=== PATIENT | female | born 1945 | race Two or more races ===

== ENCOUNTER 2024-06-11 19:08 | Inpatient (IN) | payer OTHER, MEDICAID ==
[~2024-06-11] VITALS: Ht 160 cm; Wt 93.9 kg
[~2024-06-11 19:08] MED LIST: ALBU108A5 INH; ALBUAER3 IN; HYDR-4491 PO; LEVO500T31 PO; OMEP1CAP70 PO; OMEP20TA PO; PRED20TA2 PO
[2024-06-11] MEDS: METOPROLOL TARTRATE 1MG/1ML-5ML VIAL IV ONE (19:44)
[2024-06-11] MEDS: DIGOXIN (250MCG/ML) 2 ML AMPULE IV ONE (19:44)
[2024-06-11 19:47] LABS: Urine Bacteria None Seen /hpf (None Seen)
[2024-06-11 19:48] VITALS: PULSE 166; RESP 16; O2SAT 94
--- NOTE | 2024-06-11 19:48 | ED.PDOC ---
HPI Comments 78-year-old female came to ER via EMS for palpitations. Patient does have history of hypertension, dyslipidemia, asthma, congestive heart failure, and AFib. Patient currently on Eliquis for her AFib. Patient has good compliance to her medications. Patient states for the past week, she has been feeling weak with productive cough, and episodes of palpitations. Denies any acute chest pains. Patient was seen at urgent care, EKG showed AFib in RVR, and patient was transferred to this institution for further evaluation and management. Chief Complaint: Palpitations Time Seen by MD: 19:48 Reviewed Notes: Nurses Notes Allergies: Coded Allergies: No Known Drug Allergy (Verified Allergy, Unknown, 06/15/17) Home Meds Active Scripts Albuterol Sulfate (VENTOLIN MDI) 90 Mcg Ih, 1 PUFF IN Q6HPRN PRN, #1 INHALER Prov:DA BERNAL MD 06/15/17 Levofloxacin (Levaquin) 500 Mg Tab, 500 MG PO DAILY, #7 Prov:DA BERNAL MD 06/15/17 Reported Medications Hydroxychloroquine Sulfate (PLAQUENIL) 200 Mg Tab, 200 MG PO DAILY, TAB 06/15/17 Omeprazole (Gnp Omeprazole) 20 Mg Tab, 20 MG PO DAILY, TAB 06/15/17 Information Source: Patient Mode of Arrival: EMS Severity: Moderate Timing: Days Duration: Intermittent Prehospital treatment: 12 Lead EKG Location: Substernal Radiation: No Radiation Quality: Other (Palpitations) Onset: With Light Exertion Cardiac Risk Factors: Hyperlipidemia, HTN, Other (Congestive heart failure, AFib) Associated Signs and Symptoms: Palpitations Past Medical History PAST MEDICAL HISTORY: Arthritis, Asthma, CHF, COPD, High Lipids, HTN Surgical History: Denies all surgeries 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: 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 HANDLING EQUIPMENT OPERATOR Hx Family History Family History: No family hx of Heart lesvia, No family hx of HTN Social History Smoker: Non-Smoker Alcohol: Denies ETOH Use Drugs: Denies Drug Use Lives In: Home Constitutional: reports: fatigue, weakness; denies: chills, diaphoresis, fever, malaise, sweats, others EENTM: denies: blurred vision, double vision, ear bleeding, ear discharge, ear drainage, ear pain, ear ringing, eye pain, eye redness, hearing loss, mouth pain, mouth swelling, nasal discharge, nose bleeding, nose congestion, nose pain, photophobia, tearing, throat pain, throat swelling, voice changes, others Respiratory: reports: cough; denies: hemoptysis, orthopnea, SOB at rest, shortness of breath, SOB with excertion, stridor, wheezing, others Cardiovascular: reports: edema, palpitations; denies: chest pain, dizzy spells, diaphoresis, Dyspnea on exertion, irregular heart beat, left arm pain, lightheadedness, PND, syncope, others Gastrointestinal: denies: abdomen distended, abdominal pain, blood streaked bowels, constipated, diarrhea, dysphagia, difficulty swallowing, hematemesis, melena, nausea, poor appetite, poor fluid intake, rectal bleeding, rectal pain, vomiting, others Genitourinary: denies: abnormal vagina bleeding, burning, dyspareunia, dysuria, flank pain, frequency, hematuria, incontinence, pain, , vagina discharge, urgency, others Neurological: denies: dizziness, fainting, headache, left sided numbness, left sided weakness, numbness, paresthesia, pre-existing deficit, right sided numbness, right sided weakness, seizure, speech problems, tingling, tremors, weakness, others Musculoskeletal: denies: back pain, gout, joint pain, joint swelling, muscle pain, muscle stiffness, neck pain, others Integumetry: denies: bruises, change in color, change in hair/nails, dryness, laceration, lesions, lumps, rash, wounds, others Allergic/Immunocompromised: denies: Difficulty Healing, Frequent Infections, H bonny, Itching, others Hematologic/Lymphatic: denies: anemia, blood clots, easy bleeding, easy bruising, swollen glands, others Endocrine: denies: excessive hunger, excessive sweating, excessive thirst, excessive urination, flushing, intolerance to cold, intolerance to heat, unexplained weight gain, unexplained weight loss, others Psychiatric: denies: anxiety, bipolar disorder, depression, hopeless, panic disorder, schizophrenia, sleepless, suicidal, others Physical Exam General Appearance: No Apparent Distress, Normal HEENT: Normal ENT Inspection, Pharynx Normal, TMs Normal Neck: Full Range of Motion, Non-Tender, Normal, Normal Inspection Respiratory: Chest Non-Tender, Lungs Clear, No Accessory Muscle Use, No Respiratory Distress, Normal Breath Sounds Cardiovascular: No Edema, No JVD, No Murmur, No Gallop, Normal Peripheral Pulses, Regular Rate/Rhythm Breast Exam: Deferred Gastrointestinal: No Organomegaly, Non Tender, No Pulsatile Mass, Normal Bowel Sounds, Soft Genitalia: Deferred Pelvic: Deferred Rectal: Deferred Extremities: No calf tenderness, Normal capillary refill, Normal inspection, Normal range of motion, Non-tender, No pedal edema Musculoskeletal : Apperance: Normal Neurologic: Alert, robot programmer II-XII nml as Tested, No Motor Deficits, Normal Affect, Normal Mood, No Sensory Deficits Cerebellar Function: Normal Reflexes: Normal Skin: Dry, Normal Color, Warm Lymphatic: No Adenopathy EKG EKG : Pulse Rate (adult): 167 Cardiac Rhythm: Afib Was a procedure done? Was a procedure done?: No CP Differential Dx Differential Diagnosis: A-fib, Angina, Anxiety / Panic Attack, Electrolyte Disorder Differential Diagnosis: Angina, Chest Wall Pain, Costochondritis, Esophageal reflux/spasm, Gastritis, Myocardial Infarction X-Ray, Labs, Meds, VS Vital Signs Date Time Temp Pulse Resp B/P (MAP) Pulse Ox O2 Delivery O2 Flow Rate FiO2 06/11/24 20:37 119 142/82 06/11/24 20:00 110 06/11/24 19:48 166 16 94 Room Air* 0 21 06/11/24 19:48 167 06/11/24 19:46 98.7 166 19 122/84 (97) 93 98.7 06/11/24 19:44 167 06/11/24 19:44 167 122/84 06/11/24 19:23 167 06/11/24 19:17 98.4 169 18 147/63 (91) 97 98.4 Lab Test 06/11/24 20:32 06/11/24 19:47 Range/Units Troponin I High Sensitivity 79 *H 78 *H </=34 ng/L White Blood Count 6.1 4.4-10.8 10^3/uL Red Blood Count 4.96 4.0-5.20 10^6/uL Hemoglobin 15.2 12.2-16.2 g/dL Hematocrit 46.1 H 36.0-46.0 % Mean Corpuscular Volume 92.9 80.0-100.0 fL Mean Corpuscular Hemoglobin 30.7 28.0-32.0 pg Mean Corpuscular Hemoglobin Concent 33.0 32.0-36.0 g/dL Red Cell Distribution Width 14.5 H 11.8-14.3 % Platelet Count 218 140-450 10^3/uL Mean Platelet Volume 8.4 6.9-10.8 fL Neutrophils (%) (Auto) 87.5 H 37.0-80.0 % Lymphocytes (%) (Auto) 9.7 L 10.0-50.0 % Monocytes (%) (Auto) 2.5 0.0-12.0 % Eosinophils (%) (Auto) 0.2 0.0-7.0 % Basophils (%) (Auto) 0.1 0.0-2.0 % Neutrophils # (Auto) 5.3 1.6-8.6 10 ^3/uL Lymphocytes # (Auto) 0.6 0.4-5.4 10 ^3/uL Monocytes # (Auto) 0.2 0-1.3 10 ^3/uL Eosinophils # (Auto) 0 0-0.8 10 ^3/uL Basophils # (Auto) 0 0-0.2 10 ^3/uL Nucleated Red Blood Cells 0.1 % Prothrombin Time 10.5 9.3-11.8 sec Prothrombin Time INR 0.99 0.9-1.15 Activated Partial Thromboplast Time 24.9 24.5-34.5 SEC Urine Color Colorless Yellow Urine Clarity Clear Clear Urine pH 5.5 5.0-9.0 Urine Specific [place] 1.005 1.001-1.035 Urine Protein Negative Negative Urine Ketones Negative Negative Urine Blood Negative Negative /uL Urine Nitrite Negative Negative Urine Bilirubin Negative Negative Urine Urobilinogen Normal Negative mg/dL Urine Leukocyte Esterase Negative Negative /uL Urine RBC <1 0 - 4 /hpf Urine Microscopic WBC < 1 0-5 /HPF Urine Squamous Epithelial Cells None seen <5 /hpf Urine Bacteria None seen None Seen /hpf Urine Glucose Normal Normal mg/dL Sodium Level 142 136-145 mmol/L Potassium Level 3.8 3.5-5.1 mmol/L Chloride Level 103 98-107 mmol/L Carbon Dioxide Level 28 20-31 mmol/L Anion Gap 11 5-15 Blood Urea Nitrogen 36 H 9-23 mg/dL Creatinine 0.77 0.550-1.02 mg/dL Glomerular Filtration Rate Calc 79 >90 mL/min BUN/Creatinine Ratio 46.8 H 10.0-20.0 Serum Glucose 168 H 74-106 mg/dL Calcium Level 9.4 8.7-10.4 mg/dL Total Bilirubin 0.7 0.2-1.0 mg/dL Aspartate Amino Transferase (AST) 23 13-40 U/L Alanine Aminotransferase (ALT) 25 7-40 U/L Alkaline Phosphatase 104 46-116 U/L B-Type Natriuretic Peptide 91.99 0-100 pg/mL Total Protein 6.8 5.7-8.2 g/dL Albumin 4.2 3.2-4.8 g/dL Current Medications Medications (Trade) Dose Ordered Sig/Emmanuelle Route Start Time Stop Time Status Last Admin Metoprolol Tartrate (Lopressor) 5 mg Q15M ONCE IV 06/11/24 19:30 06/11/24 19:31 DC 06/11/24 19:44 Digoxin (Lanoxin Injection) 250 mcg ONCE ONCE IV 06/11/24 19:30 06/11/24 19:31 DC 06/11/24 19:44 Aspirin (Ecotrin Enteric Coated Tablet) 81 mg ONCE ONCE PO 06/11/24 20:45 06/11/24 20:46 DC 06/11/24 20:43 CHEST RADIOGRAPH Indication: SOB Technique: Single frontal view of the chest was obtained COMPARISON: Chest x-ray 02/28/2022 FINDINGS: Lines and Tubes: None Lungs: Clear Pleura: No effusion. No pneumothorax. Cardiomediastinal contours: Unremarkable IMPRESSION: No acute abnormality demonstrated. Time of 1ST Reevaluation: 19:43 Reevaluation 1ST: Unchanged Time of 2ND Reevaluation: 21:31 Reevaluation 2ND: Unchanged Patient Education/Counseling: Diagnosis, Treatment Family Education/Counseling: No Family Present Departure 1 Departure Time of Disposition: 21:00 Impression: Primary Impression: Poorly-controlled hypertension Additional Impressions: Atrial fibrillation with rapid ventricular response Intermediate coronary syndrome Disposition: ADMITTED INPATIENT Condition: Guarded Discharged With: Self Comments Atrial Fibrillation with RVR and Chest Tightness Chief Complaint: Chest tightness and palpitations History of Present Illness: 78-year-old female with known history of atrial fibrillation presents to the emergency department with a 4-hour history of chest tightness and palpitations. Patient was initially evaluated at urgent care where she was found to be in atrial fibrillation with rapid ventricular response, prompting emergency department referral. On presentation, patient demonstrated significant heart rate variability ranging from 160-170 beats per minute. Patient is reportedly taking Eliquis for anticoagulation. Review of Systems: Cardiovascular: Positive for chest tightness, palpitations All other systems reviewed and negative Medications: Eliquis (Apixaban) Other home medications not specified in behavioral health assistant Past Medical History: 1. Atrial fibrillation 2. Hypertension Vital Signs: Heart Rate: 160-170 bpm initially, improved to approximately 115 bpm after treatment Physical Exam: Limited physical exam details available in behavioral health assistant Lab Results: Troponin: Initially 78, repeat 79 Other labs reported as unremarkable Imaging and Other Relevant Results: No imaging results documented in behavioral health assistant Medical Decision Making: Summary Statement: 78-year-old female with history of atrial fibrillation presenting with symptomatic rapid ventricular response requiring acute rate control intervention and admission. Problem List: 1. Atrial fibrillation with RVR 2. Elevated troponin 3. Chest tightness 4. Hypertension Differential Diagnosis: 1. Acute coronary syndrome 2. Medication non-compliance 3. Thyroid dysfunction 4. Electrolyte imbalance 5. Infection ED Course: Patient received three doses of IV metoprolol 5mg and digoxin loading for rate control. Aspirin administered. Rate improved from 160-170 to approximately 115. Case discussed with PHILLIP Liu who accepted admission for further management. Assessment and Plan: 1. Atrial Fibrillation with RVR: - Successfully treated with IV metoprolol and digoxin - Admit for continued rate control and medication adjustment - Continue current anticoagulation with Eliquis 2. Intermediate Coronary Syndrome: - Mildly elevated troponin requiring further evaluation - Initiated on aspirin - Require serial troponin monitoring 3. Hypertension: - Requires optimization of medical management Disposition: Admission to medical floor under PHILLIP Liu's service Billing Information: ICD-10: I48.91 - Unspecified atrial fibrillation ICD-10: R00.0 - Tachycardia, unspecified ICD-10: I10 - Essential (primary) hypertension ICD-10: R07.89 - Other chest pain Critical Care Note Critical Care Time?: Yes (35 min-critical care time only) Critical care comment: AFib in RVRTotal critical care time: Approximately 36 minutes Due to a high probability of clinically significant, life threatening deterioration, the patient required my highest level of preparedness to intervene emergently and I personally spent this critical care time directly and personally managing the patient. This critical care time included obtaining a history; examining the patient; pulse oximetry; ordering and review of studies; arranging urgent treatment with development of a management plan; evaluation of patient's response to treatment; frequent reassessment; and, discussions with other providers. This critical care time was performed to assess and manage the high probability of imminent, life-threatening deterioration that could result in multi-organ failure. It was exclusive of separately billable procedures and treating other patients. Stability Stability form required: No Heart Score Heart Score: Heart Score Response (Comments) Value History Moderate Suspicious 1 EKG Repolarization Disturb 1 Age >65 2 Risk Factors >3 or Hx ASHD 2 Troponin 1-2 x's Normal limit 1 Total 7 I personally scribed for BARBIE SESAY MD ([email or web address]) on 06/11/24 at 19:48. Electronically submitted by Sudhir Lebron (Therative). I personally scribed for BARBIE SESAY MD ([email or web address]) on 06/11/24 at 21:08. Electronically submitted by Sudhir Lebron ([email or web address]). BARBIE SESAY MD Jun 11, 2024 19:48
[2024-06-11 20:04] LABS: Basophils # (auto) 0 10 ^3/uL (0-0.2); Basophils % (auto) 0.1 % (0.0-2.0); Eosinophils # (auto) 0 10 ^3/uL (0-0.8); Eosinophils % (auto) 0.2 % (0.0-7.0); Hematocrit 46.1 % (36.0-46.0); Hemoglobin 15.2 g/dL (12.2-16.2); Lymphocytes # (auto) 0.6 10 ^3/uL (0.4-5.4); Lymphocytes % (auto) 9.7 % (10.0-50.0); Mean Corpuscular Hemoglobin 30.7 pg (28.0-32.0); Mean Corpuscular Volume 92.9 fL (80.0-100.0); Monocytes # (auto) 0.2 10 ^3/uL (0-1.3); Monocytes % (auto) 2.5 % (0.0-12.0); Neutrophils # (auto) 5.3 10 ^3/uL (1.6-8.6); Neutrophils % (auto) 87.5 % (37.0-80.0); Nucleated Red Blood Cells % 0.1 %; Platelet Count (auto) 218 10^3/uL (140-450); Red Blood Cells 4.96 10^6/uL (4.0-5.20); Red Cell Distribution Width 14.5 % (11.8-14.3); White Blood Cell 6.1 10^3/uL (4.4-10.8)
[2024-06-11 20:07] LABS: Urine Blood Negative /uL (Negative); Urine Clarity Clear (Clear); Urine Color Colorless (Yellow); Urine Protein, UAD Negative (Negative); Urine Specific Gravity 1.005 (1.001-1.035); Urine Squamous Epithelial Cell None Seen /hpf (<5); Urine Urobilinogen Normal (Negative); Urine WBC < 1 /HPF (0-5); Urine pH 5.5 (5.0-9.0)
[2024-06-11 20:19] LABS: Alanine Aminotransferase 25 U/L (7-40); Albumin 4.2 g/dL (3.2-4.8); Alkaline Phosphatase 104 U/L (46-116); Anion Gap 11 (5-15); Aspartate Aminotransferase 23 U/L (13-40); BUN/Creatinine Ratio 46.8 (10.0-20.0); Bilirubin, Total 0.7 mg/dL (0.2-1.0); Calcium 9.4 mg/dL (8.7-10.4); Carbon Dioxide 28 mmol/L (20-31); Chloride 103 mmol/L (98-107); INR 0.99 (0.9-1.15); Partial Thromboplastin Time 24.9 SEC (24.5-34.5); Potassium 3.8 mmol/L (3.5-5.1); Prothrombin Time 10.5 sec (9.3-11.8); Sodium 142 mmol/L (136-145); Total Protein 6.8 g/dL (5.7-8.2)
[2024-06-11 20:21] LABS: Blood Urea Nitrogen 36 mg/dL (9-23); Glucose 168 mg/dL (74-106)
--- NOTE | 2024-06-11 20:32 | DVH ---
CHEST RADIOGRAPH Indication: SOB Technique: Single frontal view of the chest was obtained COMPARISON: Chest x-ray 02/28/2022 FINDINGS: Lines and Tubes: None Lungs: Clear Pleura: No effusion. No pneumothorax. Cardiomediastinal contours: Unremarkable IMPRESSION: No acute abnormality demonstrated.
[2024-06-11] MEDS: ASPirin-EC 81 mg tab PO ONE (20:43)
[2024-06-11] MEDS ORDERED: DOCUSATE SOD 100 MG CAP PO PRN (22:15)
[2024-06-11] MEDS ORDERED: NITROGLYCERIN 0.4 MG SL TAB SL PRN (22:15)
[2024-06-11] MEDS ORDERED: HYDROcodone-ACET 5/325MG TAB PO PRN (22:15)
[2024-06-11] MEDS ORDERED: ONDANSETRON HCL 4 MG/2 ML VIAL IV PRN (22:15)
[2024-06-11] MEDS ORDERED: MORPHINE SULFATE INJ 2 MG/ml SYRG IV PRN ×2 (22:15)
[2024-06-11] MEDS ORDERED: METOPROLOL TARTRATE 1MG/1ML-5ML VIAL IV PRN (22:15)
[2024-06-11] MEDS ORDERED: ACETAMINOPHEN 325 MG TAB PO PRN (22:15)
[2024-06-12] VITALS (12 sets, daily range): BP systolic 127–179; BP diastolic 54–80; PULSE 60–105; RESP 16–20; TEMP 97.4–98.3; O2SAT 98–100
--- NOTE | 2024-06-12 02:10 | DVHHP2 ---
PABLITO ALMARAZ BUSINESS ACCOUNT SPECIALIST 06/12/24 0210: History of Present Illness Reason for Visit: Generalized weakness/palpitations History of Present Illness 78-year-old female with past medical history of COPD, AFib, hypertension, CHF? Presents with complaints of chest palpitations and generalized weakness x3 days. Patient went to [facility] urgent care and was deferred to the emergency department for AFib with RVR. Patient endorses exertional shortness of breath after walking short distances. States she has had increased swelling of bilateral lower extremities. Patient states she is on Eliquis for AFib and her patrol man is Dr. Hernandez. At this time patient denies fevers, chills, chest pain, nausea, vomiting, abdominal pain. Cardiovascular: AFIB, HTN Pulmonary: COPD Smoke: No ALCOHOL: none Drugs: None Lives: with Family Review of Systems Constitutional: Yes: Weakness; No: Fever, Chills, Sweats, Malaise, Other Eyes: No: Pain, Vision change, Conjunctivae inflammation, Eyelid inflammation, Other, Redness ENT: No: Ear pain, Ear discharge, Nose pain, Nose discharge, Nose congestion, Mouth pain, Mouth swelling, Throat pain, Throat swelling, Other Respiratory: SOB with excertion; No: Cough, Dry, Shortness of breath, Wheezing, Hemoptysis, Pleuritic Pain, Sputum, Wheezing, Other Cardiovascular: Palpitations, Edema; No: Chest Pain, Orthopnea, Paroxysmal Noc. Dyspnea, Lt Headedness, Other Gastrointestinal: No: Nausea, Vomiting, Abdominal Pain, Diarrhea, Constipation, Melena, Hematochezia, Other Genitourinary: No Dysuria, No Frequency, No Incontinence, No Hematuria, No Retention, No Other Musculoskeletal: No: other, neck pain, shoulder pain, arm pain, back pain, hand pain, leg pain, foot pain Skin: No: Rash, Lesions, Jaundice, Bruising, Other Neurological: No: Weakness, Numbness, Incoordination, Change in speech, Confusion, Seizures, Other Allergies: Coded Allergies: Pineapple (Verified Allergy, Severe, 06/12/24) Uncoded Allergies: Peanutbutter (Allergy, Severe, 06/12/24) Medications Current Medications Medications Dose Ordered Sig/Emmanuelle Route Start Time Stop Time Status Last Admin Dose Admin Docusate Sodium 100 mg BIDPRN PRN PO 06/11/24 22:15 Acetaminophen 650 mg Q6HP PRN PO 06/11/24 22:15 Acetaminophen/ Hydrocodone Bitart 1 tab Q4HP PRN PO 06/11/24 22:15 Ondansetron HCl 4 mg Q4HP PRN IV 06/11/24 22:15 Morphine Sulfate 2 mg Q4HPRN PRN IV 06/11/24 22:15 Nitroglycerin 0.4 mg Q5MINP PRN SL 06/11/24 22:15 Morphine Sulfate 2 mg Q30M PRN IV 06/11/24 22:15 Atenolol 25 mg BID PO 06/12/24 10:00 Apixaban 5 mg BID PO 06/12/24 10:00 Metoprolol Tartrate 2.5 mg Q4HP PRN IV 06/11/24 22:15 Pantoprazole Sodium 40 mg DAILY@BREAKFAST IV 06/12/24 08:00 Exam Vital Signs Vital Signs Date Time Temp Pulse Resp B/P (MAP) Pulse Ox O2 Delivery O2 Flow Rate FiO2 06/12/24 01:00 97.5 99 18 157/80 (105) 98 97.5 06/12/24 00:58 Nasal Cannula* 2 28 General Appearance: Alert, Oriented X3, Cooperative, mild distress HEENT: Atraumatic, PERRLA, EOMI Respiratory: Clear to auscultation, Normal air movement Cardiovascular: Normal S1, Normal S2, Other (AFib low 100s) Abdominal: Normal bowel sounds, Soft, No tenderness Extremities: No clubbing, No cyanosis, Normal pulses, Other (BLE edema) Skin: No rashes, No breakdown Neuro: Normal speech, Strength at 5/5 X4 ext Psych/Mental Status: Mental status NL, Mood NL Labs/Xrays Labs Test 06/11/24 22:39 06/11/24 20:32 06/11/24 19:47 Range/Units Troponin I High Sensitivity 80 *H </=34 ng/L Magnesium Level 2.0 1.6-2.6 mg/dL Thyroid Stimulating Hormone (TSH) 0.48 L 0.55-4.78 uIU/mL White Blood Count 6.1 4.4-10.8 10^3/uL Red Blood Count 4.96 4.0-5.20 10^6/uL Hemoglobin 15.2 12.2-16.2 g/dL Hematocrit 46.1 H 36.0-46.0 % Mean Corpuscular Volume 92.9 80.0-100.0 fL Mean Corpuscular Hemoglobin 30.7 28.0-32.0 pg Mean Corpuscular Hemoglobin Concent 33.0 32.0-36.0 g/dL Red Cell Distribution Width 14.5 H 11.8-14.3 % Platelet Count 218 140-450 10^3/uL Mean Platelet Volume 8.4 6.9-10.8 fL Neutrophils (%) (Auto) 87.5 H 37.0-80.0 % Lymphocytes (%) (Auto) 9.7 L 10.0-50.0 % Monocytes (%) (Auto) 2.5 0.0-12.0 % Eosinophils (%) (Auto) 0.2 0.0-7.0 % Basophils (%) (Auto) 0.1 0.0-2.0 % Neutrophils # (Auto) 5.3 1.6-8.6 10 ^3/uL Lymphocytes # (Auto) 0.6 0.4-5.4 10 ^3/uL Monocytes # (Auto) 0.2 0-1.3 10 ^3/uL Eosinophils # (Auto) 0 0-0.8 10 ^3/uL Basophils # (Auto) 0 0-0.2 10 ^3/uL Nucleated Red Blood Cells 0.1 % Prothrombin Time 10.5 9.3-11.8 sec Prothrombin Time INR 0.99 0.9-1.15 Activated Partial Thromboplast Time 24.9 24.5-34.5 SEC Urine Color Colorless Yellow Urine Clarity Clear Clear Urine pH 5.5 5.0-9.0 Urine Specific [place] 1.005 1.001-1.035 Urine Protein Negative Negative Urine Ketones Negative Negative Urine Blood Negative Negative /uL Urine Nitrite Negative Negative Urine Bilirubin Negative Negative Urine Urobilinogen Normal Negative mg/dL Urine Leukocyte Esterase Negative Negative /uL Urine RBC <1 0 - 4 /hpf Urine Microscopic WBC < 1 0-5 /HPF Urine Squamous Epithelial Cells None seen <5 /hpf Urine Bacteria None seen None Seen /hpf Urine Glucose Normal Normal mg/dL Sodium Level 142 136-145 mmol/L Potassium Level 3.8 3.5-5.1 mmol/L Chloride Level 103 98-107 mmol/L Carbon Dioxide Level 28 20-31 mmol/L Anion Gap 11 5-15 Blood Urea Nitrogen 36 H 9-23 mg/dL Creatinine 0.77 0.550-1.02 mg/dL Glomerular Filtration Rate Calc 79 >90 mL/min BUN/Creatinine Ratio 46.8 H 10.0-20.0 Serum Glucose 168 H 74-106 mg/dL Calcium Level 9.4 8.7-10.4 mg/dL Total Bilirubin 0.7 0.2-1.0 mg/dL Aspartate Amino Transferase (AST) 23 13-40 U/L Alanine Aminotransferase (ALT) 25 7-40 U/L Alkaline Phosphatase 104 46-116 U/L B-Type Natriuretic Peptide 91.99 0-100 pg/mL Total Protein 6.8 5.7-8.2 g/dL Albumin 4.2 3.2-4.8 g/dL Free Thyroxine (T4) Calculated 1.49 0.89-1.76 ng/dL Assessment/Plan Assessment/Plan Atrial fibrillation with RVR Elevated troponin Hypertension Plan Admit telemetry Cardiology consult. Echocardiogram. Continue home medication. IV metoprolol for rate control. ASA, Statin. Physical therapy evaluation GI ppx protonix / DVT ppx SCD on oral anticoagulation Plan discussed with: Patient, Daughter My Orders Orders - PABLITO ALMARAZ NP Procedure Category Date Status Time Admit ADMIT 06/11/24 Transmitted 22:08 Code Status CODE 06/11/24 Transmitted 22:08 Vital Signs BONITA 06/11/24 In Process 22:08 Review Orders With BONITA 06/11/24 In Process Adm. 22:08 Encourage Activity As BONITA 06/11/24 In Process Tolerate 22:08 Consistent DIET 06/12/24 Transmitted Carb(Ccho)Diabetes Breakfast Pulse Oxymetry RT 06/11/24 Transmitted Assessment - 2 22:08 Docusate Sodium PHA 06/11/24 In Process Capsule (Colace 22:15 Acetaminophen Tablet PHA 06/11/24 In Process (Tylenol Tablet) 22:15 Notify Of Changes BONITA 06/11/24 In Process From Base 22:08 Advance Directive BONITA 06/11/24 In Process 22:08 Echo 2d Mode Cardiac US 06/11/24 Logged DOP 22:08 Basic Metabolic Panel LAB 06/12/24 Logged 05:00 Basic Metabolic Panel LAB 06/13/24 Verified 05:00 Basic Metabolic Panel LAB 06/14/24 Verified 05:00 Basic Metabolic Panel LAB 06/15/24 Verified 05:00 Complete Blood Count LAB 06/12/24 Logged 05:00 Complete Blood Count LAB 06/13/24 Verified 05:00 Complete Blood Count LAB 06/14/24 Verified 05:00 Complete Blood Count LAB 06/15/24 Verified 05:00 Complete Blood Count LAB 06/16/24 Verified 05:00 Patient Condition ORDERS 06/11/24 Transmitted 22:08 Allergies BONITA 06/11/24 In Process 22:08 Hydrocodone-Acet PHA 06/11/24 In Process 5/325mg Tab ([place] 22:15 Ondansetron Hcl PHA 06/11/24 In Process (Zofran) 22:15 Morphine Sulfate PHA 06/11/24 In Process Injection 22:15 Nitroglycerin PHA 06/11/24 In Process Sublingual (Ntrostat 22:15 Morphine Sulfate PHA 06/11/24 In Process Injection 22:15 Stat Ekg For Chest BONITA 06/11/24 In Process Pain 22:08 Notify Of Changes BONITA 06/11/24 In Process From Base 22:08 Electronic Coils Supervisor For BONITA 06/11/24 In Process 24 Hours 22:08 Emergency Dysrhythmia BONITA 06/11/24 In Process Protocol 22:08 Rhythm Strips Once BONITA 06/11/24 In Process Every Shift 22:08 Oxygen By Nasal RT 06/11/24 Transmitted Cannula 22:08 * Cardiology Consult CONS 06/11/24 Transmitted 22:08 Troponin-I Hs LAB 06/12/24 Logged 04:00 Troponin-I Hs LAB 06/12/24 Logged 10:00 Atenolol Tablet PHA 06/12/24 In Process (Tenormin Tablet) 10:00 Apixaban (Eliquis) PHA 06/12/24 In Process 10:00 Metoprolol Inj PHA 06/11/24 In Process (Lopressor) 22:15 Pantoprazole PHA 06/12/24 In Process (Protonix) 08:00 Aspirin Enteric PHA 06/12/24 Verified Coated Tablet 10:00 Atorvastatin (Lipitor) PHA 06/12/24 Verified 22:00 Date of Service: Jun 12, 2024 Billing Provider: CARLA RIZO MD Common Visit Codes: NOT BILLABLE CARLA RIZO MD 06/12/24 [id number]: Review of Systems Allergies: Coded Allergies: Pineapple (Verified Allergy, Severe, 06/12/24) Uncoded Allergies: Peanutbutter (Allergy, Severe, 06/12/24) Additional Comments Additional Comments Additional Comments 78-year-old female with a known history of COPD, hypertension, chronic AFib currently on Eliquis presented to the hospital with the chest pain palpitation and generalized weakness worsening for last three days. Patient was seen in the urgent care and was sent to [facility] for admission. Patient was found to AFib with a RVR currently not on any drip. 1. AFib with RVR 2. Hypertension 3. COPD not in exacerbation 4. Mildly elevated troponin suspect secondary to AFib with RVR -continue Eliquis, beta abbey, 2D echo, cardiology consultation PABLITO ALMARAZ NP Jun 12, 2024 02:10 CARLA RIZO MD Jun 12, 2024 14:55
[2024-06-12] MEDS ORDERED: APIX5TAB PO (03:52)
[2024-06-12] MEDS ORDERED: MONT-8 PO (03:52)
[2024-06-12] MEDS ORDERED: LOSA-535 PO (03:52)
[2024-06-12] MEDS ORDERED: FURO40TA4 PO (03:52)
[2024-06-12] MEDS ORDERED: CHOL20002 PO (03:52)
[2024-06-12] MEDS ORDERED: ATEN-60 PO (03:52)
[2024-06-12] MEDS ORDERED: LEFL20TA PO (03:52)
[2024-06-12] MEDS ORDERED: ATOR-507 PO (03:52)
[2024-06-12] MEDS ORDERED: HYDR-5052 PO (03:52)
[2024-06-12] MEDS ORDERED: CYAN100L PO (03:52)
[2024-06-12] MEDS ORDERED: DOXY100C4 PO (03:53)
--- NOTE | 2024-06-12 04:59 | ECG ---
[facility] Test Date: 2024-06-11 Test Time: 19:23:26 Pat Name: MIREYA REYES Department: ED Room: [facility]9T B Gender: F Supervisor [place]: ER : 1945 Requested By: BARBIE SESAY Order Number: [id number] Reading MD: Armond Goode Measurements Intervals [place] Rate: 167 P: 0 FL: 0 QRS: 16 QRSD: 101 T: 91 QT: 290 QTc: 484 Interpretive Statements Atrial fibrillation with rapid V-rate Low voltage, extremity leads Repolarization abnormality, prob rate related Baseline wander in lead(s) I,II,aVR,V6 Electronically Signed On 06-14-2024 20:25:10 PDT by Armond Goode Please click the below link to view image of tracing.
[2024-06-12 06:54] LABS: Anion Gap 9 (5-15); Carbon Dioxide 30 mmol/L (20-31); Chloride 104 mmol/L (98-107); Sodium 143 mmol/L (136-145)
[2024-06-12 07:00] LABS: BUN/Creatinine Ratio 47.5 (10.0-20.0); Glucose 87 mg/dL (74-106)
[2024-06-12 07:35] LABS: Blood Urea Nitrogen 28 mg/dL (9-23); Calcium 8.7 mg/dL (8.7-10.4); Potassium 3.4 mmol/L (3.5-5.1)
[2024-06-12] MEDS: PANTOPRAZOLE 40 MG/10 ML VIAL INJ IV SCH (08:43)
[2024-06-12 11:43] LABS: Basophils # (auto) 0 10 ^3/uL (0-0.2); Basophils % (auto) 0.2 % (0.0-2.0); Eosinophils # (auto) 0.1 10 ^3/uL (0-0.8); Eosinophils % (auto) 1.3 % (0.0-7.0); Hematocrit 43.6 % (36.0-46.0); Hemoglobin 14.5 g/dL (12.2-16.2); Lymphocytes # (auto) 1.9 10 ^3/uL (0.4-5.4); Lymphocytes % (auto) 31.5 % (10.0-50.0); Mean Corpuscular Hemoglobin 31.4 pg (28.0-32.0); Mean Corpuscular Hgb Conc. 33.2 g/dL (32.0-36.0); Mean Corpuscular Volume 94.6 fL (80.0-100.0); Monocytes # (auto) 0.9 10 ^3/uL (0-1.3); Neutrophils # (auto) 3.2 10 ^3/uL (1.6-8.6); Nucleated Red Blood Cells % 0.2 %; Platelet Count (auto) 206 10^3/uL (140-450); Red Blood Cells 4.61 10^6/uL (4.0-5.20); Red Cell Distribution Width 14.3 % (11.8-14.3); White Blood Cell 6.1 10^3/uL (4.4-10.8)
[2024-06-12] MEDS: ASPirin-EC 81 mg tab PO SCH (12:00)
[2024-06-12] MEDS: ATENOLOL 25 MG TAB PO SCH (12:01)
[2024-06-12] MEDS: APIXABAN 5 MG TAB PO SCH (12:01)
--- NOTE | 2024-06-12 14:08 | DVHSR ---
APPROVED REPORT EXAM: Two-dimensional and M-mode echocardiogram with Doppler and color Doppler. Mitral Valve MitralMitral Stenosis E/A ratio0.02D MVAcm2 LEFT VENTRICLE The left ventricle is normal size. There is normal left ventricular wall thickness. The left ventricle is normal in structure and function. Left ventricle systolic function is normal. The Ejection Fraction is 55-60%. No regional wall motion abnormalities noted. RIGHT VENTRICLE The right ventricle is normal size. There is normal right ventricular wall thickness. The right ventricular systolic function is normal. ATRIA The left atrium is moderately dilated. The right atrium is mildly dilated. The interatrial septum is intact with no evidence for an atrial septal defect. MITRAL VALVE There is no evidence of mitral valve prolapse. There is no mitral valve stenosis. Mitral regurgitation is mild. PULMONIC VALVE The pulmonary valve is normal in structure and function. There is no pulmonic valvular regurgitation. There is no pulmonic valvular stenosis. TRICUSPID VALVE The tricuspid valve is normal in structure and function. There is no tricuspid valve regurgitation noted. There is no tricuspid valve prolapse or vegetation. There is no tricuspid valve stenosis. AORTIC VALVE The aortic valve is mildlycalcified. No aortic regurgitation is present. There is no aortic valvular stenosis. There is no aortic valvular vegetation. GREAT VESSELS The aortic root is normal in size. PERICARDIAL EFFUSION There is a no pericardial effusion. Conclusion There is normal left ventricular wall thickness. The left ventricle is normal in structure and function. Left ventricle systolic function is normal. The Ejection Fraction is 60%. The left atrium is moderately dilated. Mitral regurgitation is mild. The left atrium is moderately dilated. The right atrium is mildly dilated. The aortic valve is mildlycalcified. There is a no pericardial effusion.
[2024-06-12] MEDS: ATORVASTATIN 20 MG TAB PO SCH (22:04)
--- NOTE | 2024-06-12 22:31 | DVHINCON2 ---
DATE OF CONSULTATION: 06/12/2024 REFERRING PHYSICIAN: David Coburn MD CONSULTING PHYSICIAN: Robert Hernandez MD INDICATION: Atrial fibrillation. HISTORY OF PRESENT ILLNESS: The patient is a 78-year-old female with a history of atrial fibrillation, hypertension, and COPD, who went to urgent care with complaints of palpitations and generalized body weakness. She was noted to be in atrial fibrillation with rapid ventricular rate. Heart rate in 150s and 160s, was sent to ER here. The patient was given IV Lopressor and digoxin. Heart rate improved. Currently heart rate in the 70s to 80s. Symptoms are also improved. Currently, she is on oxygen to maintain saturation. Denies any orthopnea, paroxysmal nocturnal dyspnea, or leg swelling. PAST MEDICAL HISTORY: * COPD. * Hypertension. * Atrial fibrillation. MEDICATIONS: Per med rec. ALLERGIES: No known drug allergies. PHYSICAL EXAMINATION: GENERAL: Alert and awake in no form of cardiopulmonary distress. VITAL SIGNS: Blood pressure 130s/70, pulse 87 per minute, saturation 98%. HEENT: No carotid bruits. No jugular venous distention. CHEST: Bilateral air entry. CARDIOVASCULAR: Submucosal and palpable. Normal S1 and S2. EXTREMITIES: No peripheral edema. DIAGNOSTIC DATA: CBC is normal. Sodium 143, potassium 3.1, creatinine is 0.59. Troponin first set 80, second set 79. ASSESSMENT: * Atrial fibrillation with rapid ventricular rate, currently rate controlled. * Elevated troponin, likely demand ischemia, doubt ACS. * Hypertension. * COPD. * Congestive heart failure. RECOMMENDATIONS: * Increase atenolol to 50 mg daily. * Continue Eliquis for stroke risk reduction. * Monitor electrolytes. * We will review echo once completed. * Continue telemetry monitoring. Thank you for allowing me to partake in the care of this patient. MD NADIRA Nettles/SULEIMAN TID: [id number] RECEIPT: [id number]
[2024-06-13] VITALS (8 sets, daily range): BP systolic 125–145; BP diastolic 54–82; PULSE 70–85; RESP 16–20; TEMP 97.5–98.4; O2SAT 97–99
[2024-06-13 06:39] LABS: Chloride 104 mmol/L (98-107); Potassium 3.9 mmol/L (3.5-5.1); Sodium 140 mmol/L (136-145)
[2024-06-13 06:40] LABS: Anion Gap 7 (5-15); Carbon Dioxide 29 mmol/L (20-31)
[2024-06-13 06:41] LABS: Basophils # (auto) 0 10 ^3/uL (0-0.2); Basophils % (auto) 0.2 % (0.0-2.0); Eosinophils # (auto) 0.1 10 ^3/uL (0-0.8); Eosinophils % (auto) 1.5 % (0.0-7.0); Hematocrit 44.1 % (36.0-46.0); Hemoglobin 14.3 g/dL (12.2-16.2); Lymphocytes # (auto) 1.5 10 ^3/uL (0.4-5.4); Lymphocytes % (auto) 34.2 % (10.0-50.0); Mean Corpuscular Hemoglobin 30.9 pg (28.0-32.0); Mean Corpuscular Hgb Conc. 32.4 g/dL (32.0-36.0); Mean Corpuscular Volume 95.7 fL (80.0-100.0); Monocytes # (auto) 0.6 10 ^3/uL (0-1.3); Neutrophils # (auto) 2.2 10 ^3/uL (1.6-8.6); Neutrophils % (auto) 50.1 % (37.0-80.0); Nucleated Red Blood Cells % 0.1 %; Platelet Count (auto) 162 10^3/uL (140-450); Red Blood Cells 4.61 10^6/uL (4.0-5.20); Red Cell Distribution Width 14.8 % (11.8-14.3); White Blood Cell 4.4 10^3/uL (4.4-10.8)
[2024-06-13 06:45] LABS: BUN/Creatinine Ratio 24.6 (10.0-20.0); Blood Urea Nitrogen 14 mg/dL (9-23); Glucose 82 mg/dL (74-106)
[2024-06-13 06:51] LABS: Calcium 8.4 mg/dL (8.7-10.4)
--- NOTE | 2024-06-13 14:32 | DVHDS2 ---
Discharge Summary Date of Admission Jun 11, 2024 at 22:08 Date of Discharge: Jun 13, 2024 Labs/Diagnostic Data: Laboratory Results Test 06/13/24 05:35 06/12/24 10:30 06/11/24 20:32 06/11/24 19:47 White Blood Count 4.4 10^3/uL (4.4-10.8) Red Blood Count 4.61 10^6/uL (4.0-5.20) Hemoglobin 14.3 g/dL (12.2-16.2) Hematocrit 44.1 % (36.0-46.0) Mean Corpuscular Volume 95.7 fL (80.0-100.0) Mean Corpuscular Hemoglobin 30.9 pg (28.0-32.0) Mean Corpuscular Hemoglobin Concent 32.4 g/dL (32.0-36.0) Red Cell Distribution Width 14.8 % (11.8-14.3) Platelet Count 162 10^3/uL (140-450) Mean Platelet Volume 8.5 fL (6.9-10.8) Neutrophils (%) (Auto) 50.1 % (37.0-80.0) Lymphocytes (%) (Auto) 34.2 % (10.0-50.0) Monocytes (%) (Auto) 14.0 % (0.0-12.0) Eosinophils (%) (Auto) 1.5 % (0.0-7.0) Basophils (%) (Auto) 0.2 % (0.0-2.0) Neutrophils # (Auto) 2.2 10 ^3/uL (1.6-8.6) Lymphocytes # (Auto) 1.5 10 ^3/uL (0.4-5.4) Monocytes # (Auto) 0.6 10 ^3/uL (0-1.3) Eosinophils # (Auto) 0.1 10 ^3/uL (0-0.8) Basophils # (Auto) 0 10 ^3/uL (0-0.2) Nucleated Red Blood Cells 0.1 % Sodium Level 140 mmol/L (136-145) Potassium Level 3.9 mmol/L (3.5-5.1) Chloride Level 104 mmol/L (98-107) Carbon Dioxide Level 29 mmol/L (20-31) Anion Gap 7 (5-15) Blood Urea Nitrogen 14 mg/dL (9-23) Creatinine 0.57 mg/dL (0.550-1.02) Glomerular Filtration Rate Calc 94 mL/min (>90) BUN/Creatinine Ratio 24.6 (10.0-20.0) Serum Glucose 82 mg/dL (74-106) Calcium Level 8.4 mg/dL (8.7-10.4) Troponin I High Sensitivity 98 ng/L (</=34) Magnesium Level 2.0 mg/dL (1.6-2.6) Thyroid Stimulating Hormone (TSH) 0.48 uIU/mL (0.55-4.78) Prothrombin Time 10.5 sec (9.3-11.8) Prothrombin Time INR 0.99 (0.9-1.15) Activated Partial Thromboplast Time 24.9 SEC (24.5-34.5) Urine Color Colorless (Yellow) Urine Clarity Clear (Clear) Urine pH 5.5 (5.0-9.0) Urine Specific [place] 1.005 (1.001-1.035) Urine Protein Negative (Negative) Urine Ketones Negative (Negative) Urine Blood Negative /uL (Negative) Urine Nitrite Negative (Negative) Urine Bilirubin Negative (Negative) Urine Urobilinogen Normal mg/dL (Negative) Urine Leukocyte Esterase Negative /uL (Negative) Urine RBC <1 /hpf (0 - 4) Urine Microscopic WBC < 1 /HPF (0-5) Urine Squamous Epithelial Cells None seen /hpf (<5) Urine Bacteria None seen /hpf (None Seen) Urine Glucose Normal mg/dL (Normal) Total Bilirubin 0.7 mg/dL (0.2-1.0) Aspartate Amino Transferase (AST) 23 U/L (13-40) Alanine Aminotransferase (ALT) 25 U/L (7-40) Alkaline Phosphatase 104 U/L (46-116) B-Type Natriuretic Peptide 91.99 pg/mL (0-100) Total Protein 6.8 g/dL (5.7-8.2) Albumin 4.2 g/dL (3.2-4.8) Free Thyroxine (T4) Calculated 1.49 ng/dL (0.89-1.76) Other Laboratory Tests 06/13/24 05:35 Brief Hx & Hospital Course: 78-year-old female with a known history of COPD, hypertension, chronic AFib currently on Eliquis presented to the hospital with the chest pain palpitation and generalized weakness worsening for last three days. Patient was seen in the urgent care and was sent to [facility] for admission. Patient was found to AFib with a RVR currently not on any drip. Patient resumed on beta abbey and Eliquis. Patient does have known history of COPD currently not in exacerbation. Patient will be checked for qualification for O2 supplementation if needed. Patient is being discharged under stable condition Condition at Discharge: Stable Final Diagnosis/Problems List 78-year-old female with a known history of COPD, hypertension, chronic AFib currently on Eliquis presented to the hospital with the chest pain palpitation and generalized weakness worsening for last three days. Patient was seen in the urgent care and was sent to [facility] for admission. Patient was found to AFib with a RVR currently not on any drip. 1. AFib with RVR , currently rate controlled 2. Hypertension 3. COPD not in exacerbation 4. Mildly elevated troponin suspect secondary to AFib with RVR Discharge Disposition: Home with Health Services SNF Discharge Will this Physician continue t: No Discharge Instruct/Medications Diet: Cardiac 2g Na,low cholest Activity: No Restrictions, As Tolerated Follow Up/Referral: Follow up with the PCP in one week Follow up with Dr. Hernandez in 1-2 weeks Medications: Resume home medication including beta abbey as well as Eliquis Discharge Statement: "Patient was advised to return to the ER or call 911 if any headaches, dizziness, shortness of breath, chest pain, abdominal pain, bleeding, fevers, or worsening of medical condition. Patient was counseled about treatment plan, medications, possible side effects, patientverbalized understanding. All questions were answered to the best of my ability. This discharge took greater then 30 minutes in planning, reviewing documentation, counseling the patient, and discussing with other team members." ASSESSMENT ASSESSMENT Assessment 78-year-old female with a known history of COPD, hypertension, chronic AFib currently on Eliquis presented to the hospital with the chest pain palpitation and generalized weakness worsening for last three days. Patient was seen in the urgent care and was sent to [facility] for admission. Patient was found to AFib with a RVR currently not on any drip. 1. AFib with RVR , currently rate controlled 2. Hypertension 3. COPD not in exacerbation 4. Mildly elevated troponin suspect secondary to AFib with RVR Date of Service: Jun 13, 2024 Billing Provider: CARLA RIZO MD Common Visit Codes: NOT BILLABLE CARLA RIZO MD Jun 13, 2024 14:32
[2024-06-13] MEDS ORDERED: IOHEXOL 350 MG/ML 100ML IJ ONE (18:24)
--- NOTE | 2024-06-13 19:17 | DVH ---
CT ANGIOGRAM CHEST WITH CONTRAST FOR PULMONARY EMBOLUS CLINICAL HISTORY: Rule out PE/ elevated D-dimer TECHNIQUE: Helical axial scans of the chest during dynamic intravenous contrast injection. Pulmonary embolism protocol. Multiplanar reformats. Postprocessing MIP images. One or more of the following rad iation dose reduction techniques were used for this examination: automated exposure control, adjustme nt of the mA and/or kV according to patient size, use of iterative reconstruction technique. COMPARISON: Chest x-ray 06/07/2024 FINDINGS: Pulmonary arteries: Adequate enhancement of the pulmonary arterial system, however, respiratory motio n artifact limits evaluation of the segmental branches, especially in the lower lobes. As visualized no central or lobar branch filling defects suggestive of pulmonary embolism are identified at this ti me. Mediastinum: Heart is mildly enlarged. No pericardial effusion. No mediastinal adenopathy. Lung parenchyma: Mild scattered atelectasis/ scarring in the lower lobes. Mild compressive atelectasi s in the posterior left lower lobe. Pleura: Trace left pleural fluid. No sizable pneumothorax. Chest wall and axillae: No axillary adenopathy noted. Upper abdomen: No acute findings as visualized. IMPRESSION: No definite evidence of central or lobar branch pulmonary embolism. Trace left pleural effusion with mild compressive atelectasis in the posterior left lower lobe.
[2024-06-14 01:00] VITALS: BP 145/74; PULSE 90; RESP 15; TEMP 97.5; O2SAT 99
[2024-06-14 04:59] VITALS: BP 145/80; PULSE 75; RESP 16; TEMP 97.6; O2SAT 99
[2024-06-14 07:31] LABS: Basophils # (auto) 0.1 10 ^3/uL (0-0.2); Basophils % (auto) 1.3 % (0.0-2.0); Eosinophils # (auto) 0.1 10 ^3/uL (0-0.8); Eosinophils % (auto) 1.7 % (0.0-7.0); Hematocrit 42.4 % (36.0-46.0); Hemoglobin 13.9 g/dL (12.2-16.2); Lymphocytes # (auto) 1.3 10 ^3/uL (0.4-5.4); Lymphocytes % (auto) 31.9 % (10.0-50.0); Mean Corpuscular Hemoglobin 31.1 pg (28.0-32.0); Mean Corpuscular Hgb Conc. 32.8 g/dL (32.0-36.0); Mean Corpuscular Volume 94.8 fL (80.0-100.0); Monocytes # (auto) 0.5 10 ^3/uL (0-1.3); Neutrophils # (auto) 2.2 10 ^3/uL (1.6-8.6); Neutrophils % (auto) 52.1 % (37.0-80.0); Nucleated Red Blood Cells % 0.2 %; Platelet Count (auto) 151 10^3/uL (140-450); Red Blood Cells 4.47 10^6/uL (4.0-5.20); Red Cell Distribution Width 14.8 % (11.8-14.3); White Blood Cell 4.2 10^3/uL (4.4-10.8)
[2024-06-14 07:44] LABS: Anion Gap 7 (5-15); Carbon Dioxide 31 mmol/L (20-31); Chloride 104 mmol/L (98-107); Potassium 4.1 mmol/L (3.5-5.1); Sodium 142 mmol/L (136-145)
[2024-06-14 07:46] LABS: Calcium 8.5 mg/dL (8.7-10.4)
[2024-06-14 07:50] LABS: BUN/Creatinine Ratio 23.3 (10.0-20.0); Blood Urea Nitrogen 14 mg/dL (9-23); Glucose 93 mg/dL (74-106)
[2024-06-14 08:00] VITALS: PULSE 61
[2024-06-14 09:00] VITALS: BP 150/83; PULSE 62; RESP 18; TEMP 97.3; O2SAT 98
[2024-06-14 12:36] VITALS: BP 148/72; PULSE 75; TEMP 36.3
[2024-06-14 13:00] VITALS: BP 125/77; PULSE 51; RESP 18; TEMP 97.9; O2SAT 96
== END 2024-06-14 14:00 | disposition home or self-care (01) | DRG 309 ==
LOC: EDBD 19:08 → ER 19:16 → OVERFLOW 22:08 → TELE-WESTW 23:48
PROVIDERS: ADMIT Nurse Practitioner Family; ATTEND Nurse Practitioner Family
DX: I48.91 Unspecified atrial fibrillation (principal); I24.89 Other forms of acute ischemic heart disease; I11.0 Hypertensive heart disease with heart failure; J44.89 Other specified chronic obstructive pulmonary disease; I50.9 Heart failure, unspecified; Z79.01 Long term (current) use of anticoagulants; Z79.899 Other long term (current) drug therapy; Z91.018 Allergy to other foods
CPT/HCPCS: 36415; 71045; 71275; 80048; 80053; 81001; 83735; 83880; 84439; 84443; 84484; 85025; 85379; 85610; 85730; 93005; 93306; 96374; 96375; 97110; 97116; 97163; 97530; 99291; G0378; J2470

== ENCOUNTER 2025-02-13 09:03 | Inpatient (IN) | payer OTHER, MEDICAID ==
[2025-02-13] VITALS (8 sets, daily range): BP systolic 118–139; BP diastolic 58–85; PULSE 102–124; RESP 18–19; TEMP 97.6–98.4; O2SAT 93–98
[~2025-02-13] VITALS: Ht 157.5 cm; Wt 93.7 kg
[~2025-02-13 09:03] MED LIST changes: -ALBUAER3 IN; +APIX5TAB PO; +ATEN-60 PO; +ATOR-507 PO; +CHOL20002 PO; +CYAN100L PO; +DOXY100C4 PO; +FURO40TA4 PO; +HYDR-5052 PO; +LEFL20TA PO; -LEVO500T31 PO; +LOSA-535 PO; +MONT-8 PO; -OMEP20TA PO
--- NOTE | 2025-02-13 09:36 | ED.PDOC ---
GI ASSESSMENT HPI Comments 79-year-old female with a primary history of AFib, COPD with oxygen use at home, CHF, CAD, presents to the ED for a chief complaint of abdominal pain associated with nausea and vomiting x 4 days. Patient describes pain as sharp, constant and has no alleviating factors. Patient denies any diarrhea, rectal bleeding, fever. She does present today with chills and leg swelling. Chief Complaint: Abdominal Pain Time Seen by MD: 09:26 Reviewed Notes: Nurses Notes, Medications, Allergies Allergies: Coded Allergies: Pineapple (Verified Allergy, Severe, 06/12/24) Uncoded Allergies: Peanutbutter (Allergy, Severe, 06/12/24) Home Meds Reported Medications Albuterol Sulfate (Albuterol Sulfate Hfa) 108 Mcg/Act Aer, AER INH UD for 17 Days, #8.5 06/12/24 Omeprazole (Omeprazole Dr) 20 Mg Cap, 1 CAP PO DAILY for 90 Days, #90 06/12/24 Doxycycline Hyclate (Doxycycline Hyclate) 100 Mg Cap, 100 MG PO BID, MG 06/12/24 Hydralazine HCl (Hydralazine Hydrochloride) 50 Mg Tab, 50 MG PO TID, TAB 06/12/24 Leflunomide (Arava) 20 Mg Tab, 1 TAB PO DAILY, #30 TAB 06/12/24 Cyanocobalamin (VITAMIN B 12) 100 Mcg Krzysztof, 100 MCG PO, KRZYSZTOF 06/12/24 Atorvastatin Calcium (Lipitor) 40 Mg Tab, 1 TAB PO QPM, #90 TAB 1 Refill 06/12/24 Losartan Potassium (Losartan Potassium) 100 Mg Tab, 100 MG PO DAILY for 30 Days, MG 06/12/24 Prednisone (Prednisone) 20 Mg Tab, 2 TAB PO DAILY for 7 Days, #14 06/12/24 Furosemide (Furosemide) 40 Mg Tab, 80 MG PO BIDD for 30 Days, MG 06/12/24 Montelukast Sodium (MONTELUKAST SODIUM) 10 Mg Tab, 1 TAB PO DAILY, #30 TAB 5 Refills 06/12/24 Cholecalciferol (VITAMIN D3) 2,000 Unit Tab, 2000 UNIT PO TID, TAB 06/12/24 Apixaban Base (ELIQUIS) 5 Mg Tab, 5 MG PO BID, TAB 06/12/24 Atenolol (Atenolol) 25 Mg Tab, 25 MG PO BID for 30 Days, MG 06/12/24 Hydroxychloroquine Sulfate (PLAQUENIL) 200 Mg Tab, 1 TAB PO DAILY for 90 Days, #90 06/15/17 Information Source: Patient Mode of Arrival: Ambulatory Timing: Days (4) Duration: Since onset Quality: Sharp Vomitus: Hard Stool: Normal Severity: Moderate Recent: None Recent Hx of: None Pain Location: Diffuse Modifying Factors: Nothing Associated sign and symptoms: Nausea, Vomiting, Abdominal Pain Past Medical History PAST MEDICAL HISTORY: Arthritis, Asthma, CHF, COPD, High Lipids, HTN Surgical History (Other): Bilateral knee replacement JINRIKISHA DRIVER History: Denies all JINRIKISHA DRIVER Hx Family History Family History: No family hx of Heart lesvia, No family hx of HTN Social History Smoker: Non-Smoker Alcohol: Denies ETOH Use Drugs: Denies Drug Use Lives In: Home Constitutional: denies: chills, diaphoresis, fatigue, fever, malaise, sweats, weakness, others EENTM: denies: blurred vision, double vision, ear bleeding, ear discharge, ear drainage, ear pain, ear ringing, eye pain, eye redness, hearing loss, mouth pain, mouth swelling, nasal discharge, nose bleeding, nose congestion, nose pain, photophobia, tearing, throat pain, throat swelling, voice changes, others Respiratory: denies: cough, hemoptysis, orthopnea, SOB at rest, shortness of breath, SOB with excertion, stridor, wheezing, others Cardiovascular: denies: chest pain, dizzy spells, diaphoresis, Dyspnea on exertion, edema, irregular heart beat, left arm pain, lightheadedness, palpitations, PND, syncope, others Gastrointestinal: reports: abdominal pain, nausea, vomiting; denies: abdomen distended, blood streaked bowels, constipated, diarrhea, dysphagia, difficulty swallowing, hematemesis, melena, poor appetite, poor fluid intake, rectal bleeding, rectal pain, others Genitourinary: denies: abnormal vagina bleeding, burning, dyspareunia, dysuria, flank pain, frequency, hematuria, incontinence, pain, , vagina discharge, urgency, others Neurological: denies: dizziness, fainting, headache, left sided numbness, left sided weakness, numbness, paresthesia, pre-existing deficit, right sided numb ness, right sided weakness, seizure, speech problems, tingling, tremors, weakness, others Musculoskeletal: denies: back pain, gout, joint pain, joint swelling, muscle pain, muscle stiffness, neck pain, others Integumetry: denies: bruises, change in color, change in hair/nails, dryness, laceration, lesions, lumps, rash, wounds, others Allergic/Immunocompromised: denies: Difficulty Healing, Frequent Infections, Hives, Itching, others Hematologic/Lymphatic: denies: anemia, blood clots, easy bleeding, easy bruising, swollen glands, others Endocrine: denies: excessive hunger, excessive sweating, excessive thirst, excessive urination, flushing, intolerance to cold, intolerance to heat, unexplained weight gain, unexplained weight loss, others Psychiatric: denies: anxiety, bipolar disorder, depression, hopeless, panic disorder, schizophrenia, sleepless, suicidal, others All Other Systems: Reviewed and Negative Physical Exam General Appearance: Moderate Distress HEENT: Normal ENT Inspection, Pharynx Normal, TMs Normal Neck: Full Range of Motion, Non-Tender, Normal, Normal Inspection Respiratory: Chest Non-Tender, Lungs Clear, No Accessory Muscle Use, No Respiratory Distress, Normal Breath Sounds Cardiovascular: No Edema, No JVD, No Murmur, No Gallop, Normal Peripheral Pulses, Regular Rate/Rhythm Breast Exam: Deferred Gastrointestinal: Diffuse Genitalia: Deferred Pelvic: Deferred Rectal: Deferred Extremities: Pedal edema, Swelling (Bilateral lower extremity) Musculoskeletal : Apperance: Normal Neurologic: Alert, trademark affixer II-XII nml as Tested, No Motor Deficits, Normal Affect, Normal Mood, No Sensory Deficits Cerebellar Function: NOT DONE Reflexes: NOT DONE Skin: Normal Color Peripheral Pulses: 3+ Radial (R), 3+ Radial (L) Lymphatic: No Adenopathy Was a procedure done? Was a procedure done?: No GI differential Dx Differential Diagnosis: Constipation, Diverticular disease, Esophagitis, Gastritis/PUD, Gastroenteritis, Inflammatory BD, Urolithiasis, Electrolyte Imbalance, Food Poisoning, Viral X-Ray, Labs, Meds, VS Vital Signs Date Time Temp Pulse Resp B/P (MAP) Pulse Ox O2 Delivery O2 Flow Rate FiO2 02/13/25 12:06 98.5 124 17 127/85 (99) 92 98.5 02/13/25 12:04 127/85 02/13/25 10:04 120 26 95 Nasal Cannula 02/13/25 10:04 98.1 120 26 157/74 (101) 95 98.1 02/13/25 09:15 99 02/13/25 09:07 97.5 111 18 179/92 94 97.5 Lab Test 02/13/25 09:55 Range/Units White Blood Count 10.6 4.4-10.8 10^3/uL Red Blood Count 4.40 4.0-5.20 10^6/uL Hemoglobin 14.0 12.2-16.2 g/dL Hematocrit 42.3 36.0-46.0 % Mean Corpuscular Volume 96.1 80.0-100.0 fL Mean Corpuscular Hemoglobin 31.8 28.0-32.0 pg Mean Corpuscular Hemoglobin Concent 33.1 32.0-36.0 g/dL Red Cell Distribution Width 13.5 11.8-14.3 % Platelet Count 179 140-450 10^3/uL Mean Platelet Volume 9.5 6.9-10.8 fL Neutrophils (%) (Auto) 89.7 H 37.0-80.0 % Lymphocytes (%) (Auto) 5.7 L 10.0-50.0 % Monocytes (%) (Auto) 4.5 0.0-12.0 % Eosinophils (%) (Auto) 0.0 0.0-7.0 % Basophils (%) (Auto) 0.1 0.0-2.0 % Neutrophils # (Auto) 9.5 H 1.6-8.6 10 ^3/uL Lymphocytes # (Auto) 0.6 0.4-5.4 10 ^3/uL Monocytes # (Auto) 0.5 0-1.3 10 ^3/uL Eosinophils # (Auto) 0 0-0.8 10 ^3/uL Basophils # (Auto) 0 0-0.2 10 ^3/uL Nucleated Red Blood Cells 0.0 % Sodium Level 140 136-145 mmol/L Potassium Level 3.8 3.5-5.1 mmol/L Chloride Level 104 98-107 mmol/L Carbon Dioxide Level 26 20-31 mmol/L Anion Gap 10 5-15 Blood Urea Nitrogen 9 9-23 mg/dL Creatinine 0.72 0.550-1.02 mg/dL Glomerular Filtration Rate Calc 86 >90 mL/min BUN/Creatinine Ratio 12.5 10.0-20.0 Serum Glucose 160 H 74-106 mg/dL Calcium Level 8.9 8.7-10.4 mg/dL Troponin I High Sensitivity 9 </=34 ng/L B-Type Natriuretic Peptide 241.63 0-100 pg/mL Current Medications Medications (Trade) Dose Ordered Sig/Emmanuelle Route Start Time Stop Time Status Last Admin Furosemide (Lasix Injection) 40 mg ONCE ONCE IV 02/13/25 09:45 02/13/25 09:46 DC 02/13/25 12:04 Patient alert. Came in because of abdominal pain. Bilateral lower extremity swelling. Vitals stable. Was given Lasix. Blood sugar elevated. WBC within normal limits. Hemoglobin within normal limits. Placed on oxygen because her saturation was labile. Continue monitoring. Time of 1ST Reevaluation: 09:35 Reevaluation 1ST: Unchanged Patient Education/Counseling: Diagnosis, Treatment, Prognosis Family Education/Counseling: Diagnosis, Treatment, Prognosis SEPSIS Sepsis Screen Date sepsis recognized/suspect: Feb 13, 2025 Time Sepsis recognized/suspect: 907 Recent Procedure: No On Antibiotic Therapy: No Respiratory Rate >20: No Heart Rate >90: Yes Temp<36 C (96.8 F) or >38.3 C: No SBP <90 or MAP <65 mmHG: No New Acute Mental Status Change: No Is the patient on CPAP, BIPAP,: No Physician Orders Electrocardigram (02/13/25 09:28) Chest Portable (02/13/25 09:36) Urinalysis (02/13/25 09:36) Ct Ab Pel Wo Con-No Oral Or Iv (02/13/25 10:58) Vital Signs Date Time Temp Pulse Resp B/P (MAP) Pulse Ox O2 Delivery O2 Flow Rate FiO2 02/13/25 12:06 98.5 124 17 127/85 (99) 92 98.5 02/13/25 12:04 127/85 02/13/25 10:04 120 26 95 Nasal Cannula 02/13/25 10:04 98.1 120 26 157/74 (101) 95 98.1 02/13/25 09:15 99 02/13/25 09:07 97.5 111 18 179/92 94 97.5 Laboratory Tests Test 02/13/25 09:55 White Blood Count 10.6 10^3/uL (4.4-10.8) Medications Medications Dose Ordered Sig/Emmanuelle Route Start Time Stop Time Status Last Admin Dose Admin Furosemide 40 mg ONCE ONCE IV 02/13/25 09:45 02/13/25 09:46 DC 02/13/25 12:04 Departure 1 Departure Time of Disposition: 12:34 Impression: Primary Impression: Congestive heart failure Qualified Codes: I50.43 - Acute on chronic combined systolic (congestive) and diastolic (congestive) heart failure Disposition: ADMITTED INPATIENT Admit to: Med Surg Condition: Guarded Critical Care Note Critical Care Time?: No Stability Stability form required: No I personally scribed for BELKIS MANN MD ([email or web address]) on 02/13/25 at 09:36. Electronically submitted by Yane Ortiz ([facility]). BELKIS MANN MD Feb 13, 2025 09:36
[2025-02-13 10:14] LABS: Hematocrit 42.3 % (36.0-46.0); Hemoglobin 14.0 g/dL (12.2-16.2); Mean Corpuscular Hemoglobin 31.8 pg (28.0-32.0); Mean Corpuscular Volume 96.1 fL (80.0-100.0); Nucleated Red Blood Cells % 0.0 %
[2025-02-13 10:20] LABS: Chloride 104 mmol/L (98-107); Potassium 3.8 mmol/L (3.5-5.1); Sodium 140 mmol/L (136-145)
[2025-02-13 10:21] LABS: Anion Gap 10 (5-15); Carbon Dioxide 26 mmol/L (20-31)
[2025-02-13 10:22] LABS: Calcium 8.9 mg/dL (8.7-10.4)
[2025-02-13 10:27] LABS: BUN/Creatinine Ratio 12.5 (10.0-20.0); Blood Urea Nitrogen 9 mg/dL (9-23)
[2025-02-13 10:33] LABS: Glucose 160 mg/dL (74-106)
--- NOTE | 2025-02-13 10:53 | DVH ---
EXAM DESCRIPTION: Chest 1 View CLINICAL HISTORY: sob COMPARISON: CT CT ANGIO CHEST CONTRAST on DOS: 06/13/24, XY CHEST PORTABLE on DOS: 06/11/24, XR CHEST 2 VIEW on DOS: 06/05/24, CHEST TWO VIEWS ROUTINE on DOS: 02/28/22, CXR2 on DOS: 02/28/22 FINDINGS and IMPRESSION: Lines, tubes, and support devices: None. Lungs / Pleura: No consolidation. No pleural effusion. No pneumothorax. Mediastinum: Redemonstrated prominent cardiomediastinal silhouette. Osseous structures / Soft tissues: No acute findings.
[2025-02-13] MEDS: FUROSEMIDE 40 MG/4 ML VIAL IV ONE (12:04)
[2025-02-13] MEDS: FUROSEMIDE 40 MG/4 ML VIAL ONE (12:04)
--- NOTE | 2025-02-13 12:26 | DVH ---
EXAM DESCRIPTION: CT CT AB PEL WO CON-NO ORAL OR IV CLINICAL HISTORY: colitis COMPARISON: None TECHNIQUE: CT abdomen and pelvis without IV contrast was performed. Coronal and sagittal MPR images were generated.CTDI/ DLP = 23.42 / 1238.46 Dose reduction technique with one or more of the following methods was performed: Automated exposure control, adjustment of the mA and/or kV according to patient size, use of iterative reconstruction technique FINDINGS: Lower chest: Bibasilar subsegmental atelectasis. Trace bilateral pleural effusions. Liver: Homogenous in attenuation. . Biliary: Thickened gall bladder wall with pericholecystic fat stranding. No calcified gallstones. No biliary ductal dilatation. Pancreas: No fat stranding or focal lesion. Spleen: Normal in size.. Adrenal glands: No nodularity. Kidneys: No nephrolithiasis. No hydroureteronephrosis. . Bladder: Underdistended, limiting evaluation. Reproductive organs: 3.8 cm right adnexal cyst. Bowel: No bowel wall thickening or dilatation. Colonic diverticulosis without evidence of diverticulitis. Normal appendix.. Peritoneum: Trace public free fluid. No free air. Vessels: Normal caliber abdominal aorta. Moderate atherosclerotic calcifications.. Lymph nodes: No suspicious lymph nodes. Soft tissues: Unremarkable. . Osseous structures: No acute fracture or subluxation. No suspicious osseous lesions. Degenerative changes of the visualized thoracolumbar spine. IMPRESSION: 1. Gallbladder inflammatory changes, suspicious for acute cholecystitis. No calcified gallstones. Recommend further evaluation with ultrasound 2. Colonic diverticulosis without evidence of diverticulitis 3. 3.8 cm right adnexal cyst. Recommend further evaluation with pelvic ultrasound. 4. Trace bilateral pleural effusions.
[2025-02-13 13:16] LABS: Urine Protein, UAD TRACE (Negative)
--- NOTE | 2025-02-13 13:42 | DVH ---
EXAM DESCRIPTION: US GALLBLADDER CLINICAL HISTORY: leticia COMPARISON: Same day CT abdomen pelvis TECHNIQUE: Using real-time ultrasonography multiple images of the abdomen were obtained. FINDINGS: The liver measures 14.9 cm. No focal liver masses. The liver echongenicity is within normal limits. The partially imaged pancreas is unremarkable. No gallstones in the gallbladder. Mild gallbladder wall thickening. No pericholecystic fluid. Negative sonographic Hartmann sign. The common bile duct is not visualized There is no free intraperitoneal fluid. The right kidney measures 9.0cm. No right renal calculi or hydronephrosis. IMPRESSION: Nonspecific mild gallbladder wall thickening. No definite evidence of cholelithiasis or acute cholecystitis.
[2025-02-13 14:15] LABS: Alanine Aminotransferase 21.0 U/L (7-40); Albumin 4.5 g/dL (3.2-4.8); Bilirubin, Total 1.1 mg/dL (0.2-1.0); Total Protein 7.5 g/dL (5.7-8.2)
[2025-02-13] MEDS ORDERED: ONDANSETRON HCL 4 MG/2 ML VIAL IV PRN (14:15)
[2025-02-13] MEDS ORDERED: NITROGLYCERIN 0.4 MG SL TAB SL PRN (14:15)
[2025-02-13 14:16] LABS: Alkaline Phosphatase 144.0 U/L (46-116); Bilirubin, Direct 0.5 mg/dL (<0.3)
[2025-02-13] MEDS ORDERED: MORPHINE SULFATE 4 MG/ML SYR/VIAL IV PRN ×2 (14:45)
[2025-02-13 15:00] LABS: Lipase 30.0 U/L (12-53)
[2025-02-13] MEDS ORDERED: ALBUTEROL SULF HFA 90MCG INH 200DOSE IN PRN (17:15)
--- NOTE | 2025-02-13 17:15 | DVHHP2 ---
History of Present Illness Reason for Visit: Abdominal discussed History of Present Illness 79-year-old female with a primary history of AFib, COPD with oxygen use at home, CHF, CAD, presents to the ED for a chief complaint of abdominal pain associated with nausea and vomiting x 4 days. Patient describes pain as sharp, constant and has no alleviating factors. Patient denies any diarrhea, rectal bleeding, fever. She does present today with chills and leg swelling. Patient CT showed possible early cholecystitis versus gallbladder wall thickening. Her alkaline phosphatase is mildly elevated. Given her complaints with these abnormalities she has been brought into the hospital for further evaluation and management with the GI and General surgery. Past Medical History Arthritis, Asthma, CHF, COPD, High Lipids, HTN Past Surgical History: None Family History: Hypertension Smoke: No ALCOHOL: occassional Lives: with Family Review of Systems Review of Systems Besides abdominal pain with nausea no complaints of fevers chills or sweats. No diarrhea. No chest pain or shortness for breath. No recent travel. Other review of systems reviewed normal. Allergies: Coded Allergies: Pineapple (Verified Allergy, Severe, 06/12/24) Uncoded Allergies: Peanutbutter (Allergy, Severe, 06/12/24) Medications Current Medications Medications Dose Ordered Sig/Emmanuelle Route Start Time Stop Time Status Last Admin Dose Admin Nitroglycerin 0.4 mg Q5MINP PRN SL 02/13/25 14:15 Morphine Sulfate 2 mg Q30M PRN IV 02/13/25 14:45 Ondansetron HCl 4 mg Q4HPRN PRN IV 02/13/25 14:15 Morphine Sulfate 2 mg Q3HPRN PRN IV 02/13/25 14:45 Famotidine 20 mg Q12HR PO 02/13/25 22:00 Hydralazine HCl 10 mg Q6HP PRN IV 02/13/25 14:15 Enoxaparin Sodium 40 mg DAILY SC 02/14/25 10:00 Exam Vital Signs Vital Signs Date Time Temp Pulse Resp B/P (MAP) Pulse Ox O2 Delivery O2 Flow Rate FiO2 02/13/25 16:55 98.4 102 18 133/60 (84) 98 98.4 02/13/25 15:38 Room Air* 0 21 Exam Alert awake oriented to place and person. Mild abdominal discomfort. HEENT neck supple no JVD pupils equal round react to light. Heart regular rate and rhythm S1-S2. Lungs fair air movement chest tube will expansion no rales wheezes. Abdomen mild tenderness in the epigastric region without rebound or guarding. Positive active bowel sounds. Extremities no edema positive distal pedal pulses. Labs/Xrays Labs Test 02/13/25 12:58 02/13/25 09:55 Range/Units Urine Color Yellow Yellow Urine Clarity Clear Clear Urine pH 6.0 5.0-9.0 Urine Specific [place] 1.019 1.001-1.035 Urine Protein Trace H Negative Urine Ketones Negative Negative Urine Blood Negative Negative /uL Urine Nitrite Negative Negative Urine Bilirubin Negative Negative Urine Urobilinogen 2 H Negative mg/dL Urine Leukocyte Esterase Negative Negative /uL Urine RBC 1 0 - 4 /hpf Urine Microscopic WBC 1 0-5 /HPF Urine Squamous Epithelial Cells Few <5 /hpf Urine Bacteria Few H None Seen /hpf Urine Mucus Few None Seen Urine Glucose Normal Normal mg/dL White Blood Count 10.6 4.4-10.8 10^3/uL Red Blood Count 4.40 4.0-5.20 10^6/uL Hemoglobin 14.0 12.2-16.2 g/dL Hematocrit 42.3 36.0-46.0 % Mean Corpuscular Volume 96.1 80.0-100.0 fL Mean Corpuscular Hemoglobin 31.8 28.0-32.0 pg Mean Corpuscular Hemoglobin Concent 33.1 32.0-36.0 g/dL Red Cell Distribution Width 13.5 11.8-14.3 % Platelet Count 179 140-450 10^3/uL Mean Platelet Volume 9.5 6.9-10.8 fL Neutrophils (%) (Auto) 89.7 H 37.0-80.0 % Lymphocytes (%) (Auto) 5.7 L 10.0-50.0 % Monocytes (%) (Auto) 4.5 0.0-12.0 % Eosinophils (%) (Auto) 0.0 0.0-7.0 % Basophils (%) (Auto) 0.1 0.0-2.0 % Neutrophils # (Auto) 9.5 H 1.6-8.6 10 ^3/uL Lymphocytes # (Auto) 0.6 0.4-5.4 10 ^3/uL Monocytes # (Auto) 0.5 0-1.3 10 ^3/uL Eosinophils # (Auto) 0 0-0.8 10 ^3/uL Basophils # (Auto) 0 0-0.2 10 ^3/uL Nucleated Red Blood Cells 0.0 % Sodium Level 140 136-145 mmol/L Potassium Level 3.8 3.5-5.1 mmol/L Chloride Level 104 98-107 mmol/L Carbon Dioxide Level 26 20-31 mmol/L Anion Gap 10 5-15 Blood Urea Nitrogen 9 9-23 mg/dL Creatinine 0.72 0.550-1.02 mg/dL Glomerular Filtration Rate Calc 86 >90 mL/min BUN/Creatinine Ratio 12.5 10.0-20.0 Serum Glucose 160 H 74-106 mg/dL Calcium Level 8.9 8.7-10.4 mg/dL Total Bilirubin 1.1 H 0.2-1.0 mg/dL Direct Bilirubin 0.5 H <0.3 mg/dL Aspartate Amino Transferase (AST) 26 13-40 U/L Alanine Aminotransferase (ALT) 21 7-40 U/L Alkaline Phosphatase 144 H 46-116 U/L Troponin I High Sensitivity 9 </=34 ng/L B-Type Natriuretic Peptide 241.63 0-100 pg/mL Total Protein 7.5 5.7-8.2 g/dL Albumin 4.5 3.2-4.8 g/dL Lipase 30 12-53 U/L SEPSIS Sepsis Screen Date sepsis recognized/suspect: Feb 13, 2025 Time Sepsis recognized/suspect: 1007 Recent Procedure: No On Antibiotic Therapy: No Respiratory Rate >20: Yes Heart Rate >90: Yes Temp<36 C (96.8 F) or >38.3 C: No SBP <90 or MAP <65 mmHG: No New Acute Mental Status Change: No Is the patient on CPAP, BIPAP,: No Physician Orders Electrocardigram (02/13/25 09:28) Chest Portable (02/13/25 09:36) Ct Ab Pel Wo Con-No Oral Or Iv (02/13/25 10:58) Gallbladder (02/13/25 12:46) Admit (02/13/25 14:13) Clear Liq Diet (02/13/25 Dinner) * Surgical Consult (02/13/25 ) Comprehensive Metabolic Panel (02/14/25 04:00) Complete Blood Count (02/14/25 04:00) Nitroglycerin Sublingual (Ntrostat Subli (02/13/25 14:15) Stat Ekg For Chest Pain (02/13/25 14:13) Notify Md Of Changes From Base (02/13/25 14:13) [employer] Practitioner For 24 Hours (02/13/25 14:13) Emergency Dysrhythmia Protocol (02/13/25 14:13) Rhythm Strips Once Every Shift (02/13/25 14:13) Oxygen By Nasal Cannula (02/13/25 14:13) * Gi Dvh Trencher Driver (02/13/25 14:13) Lipase (02/14/25 04:00) Ondansetron Hcl (Zofran) (02/13/25 14:15) Famotidine Tablet (Pepcid Tablet) (02/13/25 22:00) Hydralazine Injection (Apresoline Inject (02/13/25 14:15) Enoxaparin Sodium (Lovenox) (02/14/25 10:00) Morphine Sulfate Injection (02/13/25 14:45) Morphine Sulfate Injection (02/13/25 14:45) Vital Signs Date Time Temp Pulse Resp B/P (MAP) Pulse Ox O2 Delivery O2 Flow Rate FiO2 02/13/25 16:55 98.4 102 18 133/60 (84) 98 98.4 02/13/25 15:38 98.1 118 18 127/85 (99) 94 98.1 02/13/25 15:38 118 19 95 Room Air* 0 21 02/13/25 14:21 98.1 126 16 129/84 (99) 93 98.1 02/13/25 12:06 98.5 124 17 127/85 (99) 92 98.5 02/13/25 12:04 127/85 02/13/25 10:04 120 26 95 Nasal Cannula 02/13/25 10:04 98.1 120 26 157/74 (101) 95 98.1 02/13/25 09:15 99 Laboratory Tests Test 02/13/25 09:55 White Blood Count 10.6 10^3/uL (4.4-10.8) Medications Medications Dose Ordered Sig/Emmanuelle Route Start Time Stop Time Status Last Admin Dose Admin Furosemide 40 mg ONCE ONCE IV 02/13/25 09:45 02/13/25 09:46 DC 12/27/25 12:04 40 MG Assessment/Plan Assessment/Plan Abdominal pain with the nausea vomiting Ruled out cholelithiasis/cholecystitis We will admit to medical floor. We will have GI/General surgery consultation. Repeat LFTs and lipase. Pain and nausea medications. Supportive care and treatment. Follow the labs. Further clinical management per clinical course and recommendations from the consultants. Plan discussed with: Other My Orders Orders - BORIS WILLARD MD Procedure Category Date Status Time Admit ADMIT 02/13/25 Transmitted 14:13 Clear Liq Diet DIET 02/13/25 Transmitted Dinner * Surgical Consult CONS 02/13/25 Transmitted Comprehensive LAB 02/14/25 Verified Metabolic Panel 04:00 Complete Blood Count LAB 02/14/25 Verified 04:00 Nitroglycerin PHA 02/13/25 In Process Sublingual (Ntrostat 14:15 Stat Ekg For Chest BONITA 02/13/25 In Process Pain 14:13 Notify Md Of Changes BONITA 02/13/25 In Process From Base 14:13 [employer] Practitioner For BONITA 02/13/25 In Process 24 Hours 14:13 Emergency Dysrhythmia BONITA 02/13/25 In Process Protocol 14:13 Rhythm Strips Once BONITA 02/13/25 In Process Every Shift 14:13 Oxygen By Nasal RT 02/13/25 Transmitted Cannula 14:13 * Gi Dvh Trencher Driver CONS 02/13/25 Transmitted 14:13 Lipase LAB 02/14/25 Verified 04:00 Ondansetron Hcl PHA 02/13/25 In Process (Zofran) 14:15 Famotidine Tablet PHA 02/13/25 In Process (Pepcid Tablet) 22:00 Hydralazine Injection PHA 02/13/25 In Process (Apresoline Inject 14:15 Enoxaparin Sodium PHA 02/14/25 In Process (Lovenox) 10:00 Morphine Sulfate PHA 02/13/25 In Process Injection 14:45 Morphine Sulfate PHA 02/13/25 In Process Injection 14:45 BORIS WILLARD MD Feb 13, 2025 17:15
[2025-02-13] MEDS: ALBUTEROL SULF 2.5 MG/0.5ML(0.5%) NEB SOLN NEB PRN (18:27)
[2025-02-13] MEDS: FAMOTIDINE 20 MG TAB PO SCH (21:24)
[2025-02-13] MEDS: ATORVASTATIN 20 MG TAB PO SCH (21:24)
[2025-02-13] MEDS: ATENOLOL 25 MG TAB PO SCH (21:24)
[2025-02-13] MEDS: MONTELUKAST SODIUM 10 MG TAB PO SCH (21:24)
--- NOTE | 2025-02-13 21:28 | DVHINCON2 ---
Date of service: Feb 13, [address] Faye Reason for Consultation Abd pain check on History of Present Illness 79-year-old female with a primary history of AFib, COPD with oxygen use at home, CHF, CAD, presents to the ED for a chief complaint of abdominal pain associated with nausea and vomiting x 4 days. Patient describes pain as sharp, constant and has no alleviating factors. Patient denies any diarrhea, rectal bleeding, fever. She does present today with chills and leg swelling. Patient CT showed possible early cholecystitis versus gallbladder wall thickening. Her alkaline phosphatase is mildly elevated. Given her complaints with these abnormalities she has been brought into the hospital for further evaluation and management with the GI and General surgery. Past Medical History Past Medical History Arthritis, Asthma, CHF, COPD, High Lipids, HTN Past Surgical History Past Surgical History: None Family History: Cardiovascular disease G8 MOTHER G8 FATHER Hypertension G8 FATHER Family History Family History: Hypertension Allergies: Coded Allergies: Pineapple (Verified Allergy, Severe, 06/12/24) Uncoded Allergies: Peanutbutter (Allergy, Severe, 06/12/24) Home Meds Reported Medications Albuterol Sulfate (Albuterol Sulfate Hfa) 108 Mcg/Act Aer, AER INH UD for 17 Days, #8.5 06/12/24 Omeprazole (Omeprazole Dr) 20 Mg Cap, 1 CAP PO DAILY for 90 Days, #90 06/12/24 Doxycycline Hyclate (Doxycycline Hyclate) 100 Mg Cap, 100 MG PO BID, MG 06/12/24 Hydralazine HCl (Hydralazine Hydrochloride) 50 Mg Tab, 50 MG PO TID, TAB 06/12/24 Leflunomide (Arava) 20 Mg Tab, 1 TAB PO DAILY, #30 TAB 06/12/24 Cyanocobalamin (VITAMIN B 12) 100 Mcg Tucker, 100 MCG PO, TUCKER 06/12/24 Atorvastatin Calcium (Lipitor) 40 Mg Tab, 1 TAB PO QPM, #90 TAB 1 Refill 06/12/24 Losartan Potassium (Losartan Potassium) 100 Mg Tab, 100 MG PO DAILY for 30 Days, MG 06/12/24 Prednisone (Prednisone) 20 Mg Tab, 2 TAB PO DAILY for 7 Days, #14 06/12/24 Furosemide (Furosemide) 40 Mg Tab, 80 MG PO BIDD for 30 Days, MG 06/12/24 Montelukast Sodium (MONTELUKAST SODIUM) 10 Mg Tab, 1 TAB PO DAILY, #30 TAB 5 Refills 06/12/24 Cholecalciferol (VITAMIN D3) 2,000 Unit Tab, 2000 UNIT PO TID, TAB 06/12/24 Apixaban Base (ELIQUIS) 5 Mg Tab, 5 MG PO BID, TAB 06/12/24 Atenolol (Atenolol) 25 Mg Tab, 25 MG PO BID for 30 Days, MG 06/12/24 Hydroxychloroquine Sulfate (PLAQUENIL) 200 Mg Tab, 1 TAB PO DAILY for 90 Days, #90 06/15/17 Current Medications Current Medications Medications (Trade) Dose Ordered Sig/Emmanuelle Route PRN Reason Start Time Stop Time Status Last Admin Nitroglycerin (Ntrostat Sublingual) 0.4 mg Q5MINP PRN SL FOR CHEST PAIN 02/13/25 14:15 Morphine Sulfate 2 mg Q30M PRN IV FOR CHEST PAIN 02/13/25 14:45 Ondansetron HCl (Zofran) 4 mg Q4HPRN PRN IV NAUSEA / VOMITING 02/13/25 14:15 Morphine Sulfate 2 mg Q3HPRN PRN IV SEVERE PAIN (7-10 PAIN SCALE) 02/13/25 14:45 Famotidine (Pepcid Tablet) 20 mg Q12HR PO 02/13/25 22:00 Hydralazine HCl (Apresoline Injection) 10 mg Q6HP PRN IV SBP>150 02/13/25 14:15 Enoxaparin Sodium (Lovenox) 40 mg DAILY SC 02/14/25 10:00 Albuterol (Ventolin Hfa) 108 mcg Q4HPRN PRN IN SHORTNESS OF BREATH 02/13/25 17:15 UNV Atenolol (Tenormin Tablet) 25 mg BID PO 02/13/25 22:00 Hydroxychloroquine Sulfate (Plaquenil Tablet) 200 mg DAILY PO 02/14/25 10:00 Montelukast Sodium (Singulair Tablet) 10 mg HS PO 02/13/25 22:00 Atorvastatin Calcium (Lipitor) 40 mg HS PO 02/13/25 22:00 Hydralazine HCl (Apresoline Tablet) 50 mg TID PO 02/13/25 22:00 Albuterol (Ventolin Medneb) 2.5 mg Q4HR PRN NEB SHORTNESS OF BREATH 02/13/25 18:00 02/13/25 18:27 Vital Signs Vital Signs Date Time Temp Pulse Resp B/P (MAP) Pulse Ox O2 Delivery O2 Flow Rate FiO2 02/13/25 21:09 97.6 106 18 118/58 (78) 94 97.6 02/13/25 18:29 0.0 21 02/13/25 18:27 Room Air Physical Exam Alert awake oriented to place and person. Mild abdominal discomfort. HEENT neck supple no JVD pupils equal round react to light. Heart regular rate and rhythm S1-S2. Lungs fair air movement chest tube will expansion no rales wheezes. Abdomen mild tenderness in the epigastric region without rebound or guarding. Positive active bowel sounds. Extremities no edema positive distal pedal pulses. Labs/Diagnostic Data Labs Test 02/13/25 12:58 02/13/25 09:55 Range/Units Urine Color Yellow Yellow Urine Clarity Clear Clear Urine pH 6.0 5.0-9.0 Urine Specific [place] 1.019 1.001-1.035 Urine Protein Trace H Negative Urine Ketones Negative Negative Urine Blood Negative Negative /uL Urine Nitrite Negative Negative Urine Bilirubin Negative Negative Urine Urobilinogen 2 H Negative mg/dL Urine Leukocyte Esterase Negative Negative /uL Urine RBC 1 0 - 4 /hpf Urine Microscopic WBC 1 0-5 /HPF Urine Squamous Epithelial Cells Few <5 /hpf Urine Bacteria Few H None Seen /hpf Urine Mucus Few None Seen Urine Glucose Normal Normal mg/dL White Blood Count 10.6 4.4-10.8 10^3/uL Red Blood Count 4.40 4.0-5.20 10^6/uL Hemoglobin 14.0 12.2-16.2 g/dL Hematocrit 42.3 36.0-46.0 % Mean Corpuscular Volume 96.1 80.0-100.0 fL Mean Corpuscular Hemoglobin 31.8 28.0-32.0 pg Mean Corpuscular Hemoglobin Concent 33.1 32.0-36.0 g/dL Red Cell Distribution Width 13.5 11.8-14.3 % Platelet Count 179 140-450 10^3/uL Mean Platelet Volume 9.5 6.9-10.8 fL Neutrophils (%) (Auto) 89.7 H 37.0-80.0 % Lymphocytes (%) (Auto) 5.7 L 10.0-50.0 % Monocytes (%) (Auto) 4.5 0.0-12.0 % Eosinophils (%) (Auto) 0.0 0.0-7.0 % Basophils (%) (Auto) 0.1 0.0-2.0 % Neutrophils # (Auto) 9.5 H 1.6-8.6 10 ^3/uL Lymphocytes # (Auto) 0.6 0.4-5.4 10 ^3/uL Monocytes # (Auto) 0.5 0-1.3 10 ^3/uL Eosinophils # (Auto) 0 0-0.8 10 ^3/uL Basophils # (Auto) 0 0-0.2 10 ^3/uL Nucleated Red Blood Cells 0.0 % Sodium Level 140 136-145 mmol/L Potassium Level 3.8 3.5-5.1 mmol/L Chloride Level 104 98-107 mmol/L Carbon Dioxide Level 26 20-31 mmol/L Anion Gap 10 5-15 Blood Urea Nitrogen 9 9-23 mg/dL Creatinine 0.72 0.550-1.02 mg/dL Glomerular Filtration Rate Calc 86 >90 mL/min BUN/Creatinine Ratio 12.5 10.0-20.0 Serum Glucose 160 H 74-106 mg/dL Calcium Level 8.9 8.7-10.4 mg/dL Total Bilirubin 1.1 H 0.2-1.0 mg/dL Direct Bilirubin 0.5 H <0.3 mg/dL Aspartate Amino Transferase (AST) 26 13-40 U/L Alanine Aminotransferase (ALT) 21 7-40 U/L Alkaline Phosphatase 144 H 46-116 U/L Troponin I High Sensitivity 9 </=34 ng/L B-Type Natriuretic Peptide 241.63 0-100 pg/mL Total Protein 7.5 5.7-8.2 g/dL Albumin 4.5 3.2-4.8 g/dL Lipase 30 12-53 U/L Plan/Recommendation Plan Continue IV antibiotics Rule out possible acalculous cholecystitis Surgical consult pending Recommend HIDA scan on Saturday Monitor labs Clear liquid diet Plan discussed with: Patient GIDEON PALMER MD Feb 13, 2025 21:28
[2025-02-14] VITALS (9 sets, daily range): BP systolic 115–132; BP diastolic 54–73; PULSE 88–94; RESP 17–18; TEMP 97.5–98.5; O2SAT 93–97
[2025-02-14 05:56] LABS: Albumin 3.4 g/dL (3.2-4.8); Anion Gap 7 (5-15); BUN/Creatinine Ratio 18.5 (10.0-20.0); Blood Urea Nitrogen 10 mg/dL (9-23); Carbon Dioxide 28 mmol/L (20-31); Chloride 106 mmol/L (98-107); Glucose 94 mg/dL (74-106); Lipase 22 U/L (12-53); Sodium 141 mmol/L (136-145); Total Protein 5.9 g/dL (5.7-8.2)
[2025-02-14 05:59] LABS: Alanine Aminotransferase 106 U/L (7-40); Alkaline Phosphatase 221 U/L (46-116); Bilirubin, Total 1.4 mg/dL (0.2-1.0); Calcium 8.3 mg/dL (8.7-10.4); Potassium 3.4 mmol/L (3.5-5.1)
[2025-02-14 06:08] LABS: Hematocrit 37.0 % (36.0-46.0); Hemoglobin 12.7 g/dL (12.2-16.2); Mean Corpuscular Hemoglobin 32.2 pg (28.0-32.0); Mean Corpuscular Volume 93.6 fL (80.0-100.0); Nucleated Red Blood Cells % 0.1 %
[2025-02-14] MEDS: ENOXAPARIN SOD 40 MG/0.4 ML SYRINGE SC SCH (09:29)
--- NOTE | 2025-02-14 13:29 | DVHINCON2 ---
Consultation - Surgical Date Seen: Feb 14, 2025 Referring Physician Reason for Consultation Cholecystitis History of Present Illness History of Present Illness Mrs. Cristina is a 71-year-old female who presented yesterday to the ED due to epigastric abdominal pain that started on the 10 of February. Patient states that the pain has been very severe and has not gotten better at all. Since arriving to the hospital is slightly improved due to pain medications. Patient states that she had nausea and vomiting at home. She has had this episodes in the past but they do not come as frequent. Patient denies fevers, chills, changes in urinary or stooling habits, acholic stools. Patient is on Eliquis, last taken on the for AFib. Patient is also on prednisone 20 mg for RA. Past Medical/Surgical History Past Medical/Surgical History Past medical history: Rheumatoid arthritis on prednisone, AFib on Eliquis, CHF, CAD, COPD PSH: Bilateral total knee replacement Family and Social History Family and Social History Family history noncontributory ETOH/T Ob/drugs denies Allergies and medications Allergies: Coded Allergies: Pineapple (Verified Allergy, Severe, 06/12/24) Uncoded Allergies: Peanutbutter (Allergy, Severe, 06/12/24) Home Meds Reported Medications Albuterol Sulfate (Albuterol Sulfate Hfa) 108 Mcg/Act Aer, AER INH UD for 17 Days, #8.5 06/12/24 Omeprazole (Omeprazole Dr) 20 Mg Cap, 1 CAP PO DAILY for 90 Days, #90 06/12/24 Doxycycline Hyclate (Doxycycline Hyclate) 100 Mg Cap, 100 MG PO BID, MG 06/12/24 Hydralazine HCl (Hydralazine Hydrochloride) 50 Mg Tab, 50 MG PO TID, TAB 06/12/24 Leflunomide (Arava) 20 Mg Tab, 1 TAB PO DAILY, #30 TAB 06/12/24 Cyanocobalamin (VITAMIN B 12) 100 Mcg Tucker, 100 MCG PO, TUCKER 06/12/24 Atorvastatin Calcium (Lipitor) 40 Mg Tab, 1 TAB PO QPM, #90 TAB 1 Refill 06/12/24 Losartan Potassium (Losartan Potassium) 100 Mg Tab, 100 MG PO DAILY for 30 Days, MG 06/12/24 Prednisone (Prednisone) 20 Mg Tab, 2 TAB PO DAILY for 7 Days, #14 4/25/25 Furosemide (Furosemide) 40 Mg Tab, 80 MG PO BIDD for 30 Days, MG 06/12/24 Montelukast Sodium (MONTELUKAST SODIUM) 10 Mg Tab, 1 TAB PO DAILY, #30 TAB 5 Refills 06/12/24 Cholecalciferol (VITAMIN D3) 2,000 Unit Tab, 2000 UNIT PO TID, TAB 06/12/24 Apixaban Base (ELIQUIS) 5 Mg Tab, 5 MG PO BID, TAB 06/12/24 Atenolol (Atenolol) 25 Mg Tab, 25 MG PO BID for 30 Days, MG 06/12/24 Hydroxychloroquine Sulfate (PLAQUENIL) 200 Mg Tab, 1 TAB PO DAILY for 90 Days, #90 06/15/17 Review of systems Review of Systems: Deferred Examination Vital signs Vital Signs Date Time Temp Pulse Resp B/P (MAP) Pulse Ox O2 Delivery O2 Flow Rate FiO2 02/14/25 10:15 94 Room Air 0.0 02/14/25 10:15 21 02/14/25 09:28 91 132/73 02/14/25 08:31 97.5 18 97.5 Medications Current Medications Medications (Trade) Dose Ordered Sig/Emmanuelle Route PRN Reason Start Time Stop Time Status Last Admin Nitroglycerin (Ntrostat Sublingual) 0.4 mg Q5MINP PRN SL FOR CHEST PAIN 02/13/25 14:15 Morphine Sulfate 2 mg Q30M PRN IV FOR CHEST PAIN 02/13/25 14:45 Ondansetron HCl (Zofran) 4 mg Q4HPRN PRN IV NAUSEA / VOMITING 02/13/25 14:15 Morphine Sulfate 2 mg Q3HPRN PRN IV SEVERE PAIN (7-10 PAIN SCALE) 02/13/25 14:45 Famotidine (Pepcid Tablet) 20 mg Q12HR PO 02/13/25 22:00 02/14/25 09:29 Hydralazine HCl (Apresoline Injection) 10 mg Q6HP PRN IV SBP>150 02/13/25 14:15 Enoxaparin Sodium (Lovenox) 40 mg DAILY SC 02/14/25 10:00 02/14/25 09:29 Albuterol (Ventolin Hfa) 108 mcg Q4HPRN PRN IN SHORTNESS OF BREATH 02/13/25 17:15 UNV Atenolol (Tenormin Tablet) 25 mg BID PO 02/13/25 22:00 02/14/25 09:28 Hydroxychloroquine Sulfate (Plaquenil Tablet) 200 mg DAILY PO 02/14/25 10:00 02/14/25 09:28 Montelukast Sodium (Singulair Tablet) 10 mg HS PO 02/13/25 22:00 02/13/25 21:24 Atorvastatin Calcium (Lipitor) 40 mg HS PO 02/13/25 22:00 02/13/25 21:24 Hydralazine HCl (Apresoline Tablet) 50 mg TID PO 02/13/25 22:00 02/14/25 05:16 Albuterol (Ventolin Medneb) 2.5 mg Q4HR PRN NEB SHORTNESS OF BREATH 02/13/25 18:00 02/13/25 18:27 Laboratory Labs Test 02/14/25 05:19 02/13/25 12:58 02/13/25 09:55 Range/Units White Blood Count 5.2 # 4.4-10.8 10^3/uL Red Blood Count 3.95 L 4.0-5.20 10^6/uL Hemoglobin 12.7 12.2-16.2 g/dL Hematocrit 37.0 # 36.0-46.0 % Mean Corpuscular Volume 93.6 80.0-100.0 fL Mean Corpuscular Hemoglobin 32.2 H 28.0-32.0 pg Mean Corpuscular Hemoglobin Concent 34.4 32.0-36.0 g/dL Red Cell Distribution Width 13.6 11.8-14.3 % Platelet Count 137 L 140-450 10^3/uL Mean Platelet Volume 9.3 6.9-10.8 fL Neutrophils (%) (Auto) 67.7 37.0-80.0 % Lymphocytes (%) (Auto) 18.3 10.0-50.0 % Monocytes (%) (Auto) 13.6 H 0.0-12.0 % Eosinophils (%) (Auto) 0.3 0.0-7.0 % Basophils (%) (Auto) 0.1 0.0-2.0 % Neutrophils # (Auto) 3.5 1.6-8.6 10 ^3/uL Lymphocytes # (Auto) 0.9 0.4-5.4 10 ^3/uL Monocytes # (Auto) 0.7 0-1.3 10 ^3/uL Eosinophils # (Auto) 0 0-0.8 10 ^3/uL Basophils # (Auto) 0 0-0.2 10 ^3/uL Nucleated Red Blood Cells 0.1 % Sodium Level 141 136-145 mmol/L Potassium Level 3.4 L 3.5-5.1 mmol/L Chloride Level 106 98-107 mmol/L Carbon Dioxide Level 28 20-31 mmol/L Anion Gap 7 5-15 Blood Urea Nitrogen 10 9-23 mg/dL Creatinine 0.54 L 0.550-1.02 mg/dL Glomerular Filtration Rate Calc 94 >90 mL/min BUN/Creatinine Ratio 18.5 10.0-20.0 Serum Glucose 94 74-106 mg/dL Calcium Level 8.3 L 8.7-10.4 mg/dL Total Bilirubin 1.4 H 0.2-1.0 mg/dL Aspartate Amino Transferase (AST) 137 H 13-40 U/L Alanine Aminotransferase (ALT) 106 H 7-40 U/L Alkaline Phosphatase 221 H 46-116 U/L Total Protein 5.9 5.7-8.2 g/dL Albumin 3.4 3.2-4.8 g/dL Lipase 22 12-53 U/L Urine Color Yellow Yellow Urine Clarity Clear Clear Urine pH 6.0 5.0-9.0 Urine Specific [place] 1.019 1.001-1.035 Urine Protein Trace H Negative Urine Ketones Negative Negative Urine Blood Negative Negative /uL Urine Nitrite Negative Negative Urine Bilirubin Negative Negative Urine Urobilinogen 2 H Negative mg/dL Urine Leukocyte Esterase Negative Negative /uL Urine RBC 1 0 - 4 /hpf Urine Microscopic WBC 1 0-5 /HPF Urine Squamous Epithelial Cells Few <5 /hpf Urine Bacteria Few H None Seen /hpf Urine Mucus Few None Seen Urine Glucose Normal Normal mg/dL Direct Bilirubin 0.5 H <0.3 mg/dL Troponin I High Sensitivity 9 </=34 ng/L B-Type Natriuretic Peptide 241.63 0-100 pg/mL Examination: GENERAL:Normal (AAO x3), HEENT:Normal (No icterus, neck supple), LUNGS:Normal (Nonlabored breathing with symmetric expansion), ABDOMEN:Abnormal (Globose, soft, depressible, no scars, epigastric tenderness, no rebound, no guarding) Problem List/Assessment/Plan Problems: (1) Acute cholecystitis Assessment and Plan Mrs. Cristina is a 71-year-old female who presents with the acute cholecystitis. CT shows pericholecystic fluid. Ultrasound shows sludge and a mildly thickened gallbladder wall. Patient is tender in the epigastric/right upper quadrant area physical exam. Given that the patient is on Eliquis and last taken on February 12 (needs to be off Eliquis 5 days prior to surgery) and has had pain already for 4 days, we will pursue nonoperative management with IV antibiotics. I will start the patient on Zosyn. 1. Non op management of acute cholecystitis for the above reasons 2. IV Zosyn ordered 3. Pain and nausea control Plan discussed with Plan discussed with: Patient Visit Coding Surgery Date of Service if different f: Feb 14, 2025 Billing Provider: BITA RON MD Surgery Visit Codes: 19206 - INP CONSULT <110 MIN BITA RON MD Feb 14, 2025 13:29
[2025-02-14] MEDS: PIPERACILLIN-TAZOB 3.375GM 100 ML IV SCH (13:48)
--- NOTE | 2025-02-14 16:48 | DVHPN2 ---
Progress Note - Dictate Date Seen: Feb 14, 2025 Medical Necessity Reason Pt with a Central, PICC or Fol: No Subjective Clinically stable. Tolerating liquid diet. Evaluated by general surgery and GI. Given patient is on Eliquis surgery he is recommending to hold for five days before considering any surgical option. vital signs Vital Sign Date Time Temp Pulse Resp B/P (MAP) Pulse Ox O2 Delivery O2 Flow Rate FiO2 02/14/25 13:33 137/79 02/14/25 13:00 97.7 90 17 95 97.7 02/14/25 10:15 Room Air 0.0 02/14/25 10:15 21 Total Intake and Output 02/13/25 02/13/25 02/14/25 15:00 23:00 07:00 Intake Total 240 ml 200 ml Balance 240 ml 200 ml medications Current Medications Medications Dose Ordered Sig/Emmanuelle Route Start Time Stop Time Status Last Admin Dose Admin Nitroglycerin 0.4 mg Q5MINP PRN SL 02/13/25 14:15 Morphine Sulfate 2 mg Q30M PRN IV 02/13/25 14:45 Ondansetron HCl 4 mg Q4HPRN PRN IV 02/13/25 14:15 Morphine Sulfate 2 mg Q3HPRN PRN IV 02/13/25 14:45 Famotidine 20 mg Q12HR PO 02/13/25 22:00 02/14/25 09:29 20 MG Hydralazine HCl 10 mg Q6HP PRN IV 02/13/25 14:15 Enoxaparin Sodium 40 mg DAILY SC 02/14/25 10:00 02/14/25 09:29 40 MG Albuterol 108 mcg Q4HPRN PRN IN 02/13/25 17:15 UNV Atenolol 25 mg BID PO 02/13/25 22:00 02/14/25 09:28 25 MG Hydroxychloroquine Sulfate 200 mg DAILY PO 02/14/25 10:00 02/14/25 09:28 200 MG Montelukast Sodium 10 mg HS PO 02/13/25 22:00 02/13/25 21:24 10 MG Hydralazine HCl 50 mg TID PO 02/13/25 22:00 02/14/25 13:33 50 MG Albuterol 2.5 mg Q4HR PRN NEB 02/13/25 18:00 02/13/25 18:27 2.5 MG Piperacillin Sod/ Tazobactam Sod 100 ml @ 25 mls/hr Q8HR IV 02/14/25 14:00 02/14/25 13:48 25 MLS/HR objective Abdomen soft nontender nondistended positive bowel sounds. Comfortable in bed without distress. laboratory and microbiology Laboratory Tests 02/14/25 05:19 Test 02/14/25 05:19 Range/Units Serum Glucose 94 74-106 mg/dL Assessment/Plan Chronic atrial fibrillation on Eliquis we will hold for anticipated surgery per surgery recommendations. Continue empiric antibiotics. DC the fluids given history of heart failure. Patient is not in any acute exacerbation of heart failure at present. Continue Lovenox DVT GI prophylaxis. Supportive care and treatment. Further clinical management per clinical course and recommendations of consultants. Discussed with the patient and nurse regarding care plan. Problems(with codes): (1) Acute cholecystitis (2) Poorly-controlled hypertension Plan discussed with: Patient BORIS WILLARD MD Feb 14, 2025 16:48
--- NOTE | 2025-02-14 17:19 | DVHPN2 ---
Progress Note - Dictate Date Seen: Feb 14, 2025 Medical Necessity Reason Pt with a Central, PICC or Fol: No Subjective No new complaints, patient awake alert Surgical consult at bedside Tolerating clear liquid diet Mild worsening elevation in liver enzymes vital signs Vital Sign Date Time Temp Pulse Resp B/P (MAP) Pulse Ox O2 Delivery O2 Flow Rate FiO2 02/14/25 17:00 98.5 93 17 116/70 (85) 93 98.5 02/14/25 10:15 Room Air 0.0 02/14/25 10:15 21 Total Intake and Output 02/13/25 02/13/25 02/14/25 15:00 23:00 07:00 Intake Total 240 ml 200 ml Balance 240 ml 200 ml medications Current Medications Medications Dose Ordered Sig/Emmanuelle Route Start Time Stop Time Status Last Admin Dose Admin Nitroglycerin 0.4 mg Q5MINP PRN SL 02/13/25 14:15 Morphine Sulfate 2 mg Q30M PRN IV 02/13/25 14:45 Ondansetron HCl 4 mg Q4HPRN PRN IV 02/13/25 14:15 Morphine Sulfate 2 mg Q3HPRN PRN IV 02/13/25 14:45 Famotidine 20 mg Q12HR PO 02/13/25 22:00 02/14/25 09:29 20 MG Hydralazine HCl 10 mg Q6HP PRN IV 02/13/25 14:15 Enoxaparin Sodium 40 mg DAILY SC 02/14/25 10:00 02/14/25 09:29 40 MG Albuterol 108 mcg Q4HPRN PRN IN 02/13/25 17:15 UNV Atenolol 25 mg BID PO 02/13/25 22:00 02/14/25 09:28 25 MG Hydroxychloroquine Sulfate 200 mg DAILY PO 02/14/25 10:00 02/14/25 09:28 200 MG Montelukast Sodium 10 mg HS PO 02/13/25 22:00 02/13/25 21:24 10 MG Hydralazine HCl 50 mg TID PO 02/13/25 22:00 02/14/25 13:33 50 MG Albuterol 2.5 mg Q4HR PRN NEB 02/13/25 18:00 02/13/25 18:27 2.5 MG Piperacillin Sod/ Tazobactam Sod 100 ml @ 25 mls/hr Q8HR IV 02/14/25 14:00 02/14/25 13:48 25 MLS/HR objective Abdomen soft nontender nondistended positive bowel sounds. Comfortable in bed without distress. laboratory and microbiology Laboratory Tests 02/14/25 05:19 Test 02/14/25 05:19 Range/Units Serum Glucose 94 74-106 mg/dL Problems(with codes): (1) Acute cholecystitis (2) Poorly-controlled hypertension (3) Congestive heart failure (4) Atrial fibrillation with rapid ventricular response Prognosis PLAN Evaluated by general surgery Given patient is on Eliquis surgery he is recommending to hold for five days before considering any surgical option. Patient will need Cardiology violence and clearance prior to surgery Continue medical management with IV fluid hydration and IV antibiotics and pain control at this time Check hepatitis panel and POLA Outpatient follow up with surgery and GI Services as needed Plan discussed with: Patient, Other (Dr Braden) GIDEON PALMER MD Feb 14, 2025 17:19
[2025-02-14] MEDS: ATENOLOL 25 MG TAB PO SCH (22:54)
[2025-02-14] MEDS: FAMOTIDINE 20 MG TAB PO SCH (22:54)
[2025-02-14] MEDS: MONTELUKAST SODIUM 10 MG TAB PO SCH (22:54)
[2025-02-15] VITALS (8 sets, daily range): BP systolic 121–150; BP diastolic 74–93; PULSE 81–104; RESP 16–18; TEMP 97.1–97.9; O2SAT 94–96
[2025-02-15] MEDS: PIPERACILLIN-TAZOB 3.375GM 100 ML IV SCH (05:23)
[2025-02-15 07:19] LABS: Albumin 3.6 g/dL (3.2-4.8); Anion Gap 8 (5-15); BUN/Creatinine Ratio 12.3 (10.0-20.0); Bilirubin, Total 0.8 mg/dL (0.2-1.0); Carbon Dioxide 26 mmol/L (20-31); Glucose 78 mg/dL (74-106); Potassium 3.6 mmol/L (3.5-5.1); Sodium 144 mmol/L (136-145); Total Protein 6.0 g/dL (5.7-8.2)
[2025-02-15 07:21] LABS: Alanine Aminotransferase 82 U/L (7-40); Alkaline Phosphatase 208 U/L (46-116); Blood Urea Nitrogen 8 mg/dL (9-23); Calcium 8.5 mg/dL (8.7-10.4); Chloride 110 mmol/L (98-107)
--- NOTE | 2025-02-15 10:08 | ECG ---
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
[2025-02-15 13:03] LABS: Hepatitis A Total Antibody Positive (Negative); Hepatitis B Surface Antigen Negative (Negative); Hepatitis C Antibody Negative (Negative)
--- NOTE | 2025-02-15 13:53 | DVHPN2 ---
Progress Note - Surgical Date Seen: Feb 15, 2025 Post op day Post op day: 0 Subjective Patient reports: Feels better Review of Systems: Deferred Objective Vital signs Vital Sign Date Time Temp Pulse Resp B/P (MAP) Pulse Ox O2 Delivery O2 Flow Rate FiO2 02/15/25 12:37 97.2 81 16 149/91 (110) 95 97.2 02/15/25 08:05 Room Air* 0 21 Total Intake and Output 02/14/25 02/14/25 02/15/25 15:00 23:00 07:00 Intake Total 900 ml 900 ml Balance 900 ml 900 ml Medications Current Medications Medications Dose Ordered Sig/Emmanuelle Route Start Time Stop Time Status Last Admin Dose Admin Nitroglycerin 0.4 mg Q5MINP PRN SL 02/13/25 14:15 Morphine Sulfate 2 mg Q30M PRN IV 02/13/25 14:45 Ondansetron HCl 4 mg Q4HPRN PRN IV 02/13/25 14:15 Morphine Sulfate 2 mg Q3HPRN PRN IV 02/13/25 14:45 Hydralazine HCl 10 mg Q6HP PRN IV 02/13/25 14:15 Enoxaparin Sodium 40 mg DAILY SC 02/14/25 10:00 02/15/25 12:17 40 MG Albuterol 108 mcg Q4HPRN PRN IN 02/13/25 17:15 UNV Hydroxychloroquine Sulfate 200 mg DAILY PO 02/14/25 10:00 02/15/25 10:34 200 MG Hydralazine HCl 50 mg Q8HR PO 02/14/25 22:00 02/15/25 05:31 50 MG Montelukast Sodium 10 mg HS PO 02/14/25 22:00 02/14/25 22:54 10 MG Atenolol 25 mg BID PO 02/14/25 22:00 02/15/25 08:35 25 MG Piperacillin Sod/ Tazobactam Sod 100 ml @ 25 mls/hr Q8HR IV 02/15/25 06:00 02/15/25 05:23 25 MLS/HR Famotidine 20 mg DAILY PO 02/16/25 10:00 Laboratory Laboratory Tests 02/15/25 04:34 02/14/25 05:19 Test 02/15/25 04:34 Range/Units Serum Glucose 78 74-106 mg/dL Examination: GENERAL:Normal (aaO x3), HEENT:Normal (No icterus, neck supple), LUNGS:Normal (Nonlabored breathing with symmetric expansion), ABDOMEN:Normal (Nondistended, soft, depressible, minimal right upper quadrant tenderness), SKIN:Normal (No jaundice) Labs and/or images reviewed: Labs reviewed by me (No leukocytosis) Problem List/Assessment/Plan Assessment and Plan Mrs. Cristina is a 71-year-old female who presents with the acute cholecystitis. CT shows pericholecystic fluid. Ultrasound shows sludge and a mildly thickened gallbladder wall. Patient is tender in the epigastric/right upper quadrant area physical exam. Given that the patient is on Eliquis and last taken on February 12 (needs to be off Eliquis 5 days prior to surgery) and has had pain already for 4 days, we will pursue nonoperative management with IV antibiotics. I will start the patient on Zosyn. Interval: Patient states pain is improving, we will continue with nonoperative management with IV antibiotics. If patient continues to improve she might be able to go home and continue antibiotics orally at home, tomorrow. 1. Non op management of acute cholecystitis for the above reasons 2. IV Zosyn ordered 3. Pain and nausea control Plan discussed with Plan discussed with: Patient Visit Coding Surgery Date of Service if different f: Feb 15, 2025 Billing Provider: BITA RON MD Surgery Visit Codes: [id number] INP/OBS CARE(HIGH) BITA RON MD Feb 15, 2025 13:53
--- NOTE | 2025-02-15 15:31 | DVHPN2 ---
Progress Note - Dictate Date Seen: Feb 15, 2025 Medical Necessity Reason Pt with a Central, PICC or Fol: No Subjective Clinically stable. Abdominal pain has improved. Tolerating liquid diet. GI is recommending transitioned to oral antibiotics and discharge and scheduled elective gallbladder surgery after Saturday given patient is on Eliquis. vital signs Vital Sign Date Time Temp Pulse Resp B/P (MAP) Pulse Ox O2 Delivery O2 Flow Rate FiO2 02/15/25 13:57 158/80 02/15/25 12:37 97.2 81 16 95 97.2 02/15/25 08:05 Room Air* 0 21 Total Intake and Output 02/14/25 02/14/25 02/15/25 15:00 23:00 07:00 Intake Total 900 ml 900 ml Balance 900 ml 900 ml medications Current Medications Medications Dose Ordered Sig/Emmanuelle Route Start Time Stop Time Status Last Admin Dose Admin Nitroglycerin 0.4 mg Q5MINP PRN SL 02/13/25 14:15 Morphine Sulfate 2 mg Q30M PRN IV 02/13/25 14:45 Ondansetron HCl 4 mg Q4HPRN PRN IV 02/13/25 14:15 Morphine Sulfate 2 mg Q3HPRN PRN IV 02/13/25 14:45 Hydralazine HCl 10 mg Q6HP PRN IV 02/13/25 14:15 Enoxaparin Sodium 40 mg DAILY SC 02/14/25 10:00 02/15/25 12:17 40 MG Albuterol 108 mcg Q4HPRN PRN IN 02/13/25 17:15 UNV Hydroxychloroquine Sulfate 200 mg DAILY PO 02/14/25 10:00 02/15/25 10:34 200 MG Hydralazine HCl 50 mg Q8HR PO 02/14/25 22:00 02/15/25 13:57 50 MG Montelukast Sodium 10 mg HS PO 02/14/25 22:00 02/14/25 22:54 10 MG Atenolol 25 mg BID PO 02/14/25 22:00 02/15/25 08:35 25 MG Piperacillin Sod/ Tazobactam Sod 100 ml @ 25 mls/hr Q8HR IV 02/15/25 06:00 02/15/25 13:58 25 MLS/HR Famotidine 20 mg DAILY PO 02/16/25 10:00 objective Abdomen soft nontender nondistended positive bowel sounds. Comfortable in bed without distress. laboratory and microbiology Laboratory Tests 02/15/25 04:34 02/14/25 05:19 Test 02/15/25 04:34 Range/Units Serum Glucose 78 74-106 mg/dL Assessment/Plan Patient we will continue to hold Eliquis. Advance diet to soft diet. If she tolerates plan to discharge home with oral antibiotics and pain medicine and scheduled elective gallbladder surgery with a and a week. Discussed with the patient and verbalized understanding of this. Otherwise further clinical management per clinical course and recommendations from the consultants. 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
[2025-02-15] MEDS: hydrALAZINE HCL 20 MG/ML VL IV PRN (16:40)
--- NOTE | 2025-02-15 23:36 | DVHPN2 ---
Progress Note - Dictate Date Seen: Feb 15, 2025 Medical Necessity Reason Pt with a Central, PICC or Fol: No Subjective No new complaints, patient awake alert Clinically stable. Abdominal pain has improved. Tolerating liquid diet. Liver enzymes trending down Hepatitis panel negative POLA pending vital signs Vital Sign Date Time Temp Pulse Resp B/P (MAP) Pulse Ox O2 Delivery O2 Flow Rate FiO2 02/15/25 21:15 140/75 02/15/25 21:14 98 02/15/25 21:00 97.9 16 96 97.9 02/15/25 20:00 Room Air* 0 21 Total Intake and Output 02/14/25 02/14/25 02/15/25 15:00 23:00 07:00 Intake Total 900 ml 900 ml Balance 900 ml 900 ml medications Current Medications Medications Dose Ordered Sig/Emmanuelle Route Start Time Stop Time Status Last Admin Dose Admin Nitroglycerin 0.4 mg Q5MINP PRN SL 02/13/25 14:15 Morphine Sulfate 2 mg Q30M PRN IV 02/13/25 14:45 Ondansetron HCl 4 mg Q4HPRN PRN IV 02/13/25 14:15 Morphine Sulfate 2 mg Q3HPRN PRN IV 02/13/25 14:45 Hydralazine HCl 10 mg Q6HP PRN IV 02/13/25 14:15 02/15/25 16:40 10 MG Enoxaparin Sodium 40 mg DAILY SC 02/14/25 10:00 02/15/25 12:17 40 MG Albuterol 108 mcg Q4HPRN PRN IN 02/13/25 17:15 UNV Hydroxychloroquine Sulfate 200 mg DAILY PO 02/14/25 10:00 02/15/25 10:34 200 MG Hydralazine HCl 50 mg Q8HR PO 02/14/25 22:00 02/15/25 21:15 50 MG Montelukast Sodium 10 mg HS PO 02/14/25 22:00 02/15/25 21:15 10 MG Atenolol 25 mg BID PO 02/14/25 22:00 02/15/25 21:14 25 MG Piperacillin Sod/ Tazobactam Sod 100 ml @ 25 mls/hr Q8HR IV 02/15/25 06:00 02/15/25 21:14 25 MLS/HR Famotidine 20 mg DAILY PO 02/16/25 10:00 objective Abdomen soft nontender nondistended positive bowel sounds. Comfortable in bed without distress. laboratory and microbiology Laboratory Tests 02/15/25 04:34 02/14/25 05:19 Test 02/15/25 04:34 Range/Units Serum Glucose 78 74-106 mg/dL Problems(with codes): (1) Atrial fibrillation with rapid ventricular response (2) Poorly-controlled hypertension (3) Acute cholecystitis (4) Congestive heart failure Prognosis Plan Patient has been followed by surgical consult also Conservative management recommended at this time Continue IV antibiotics and transition to oral antibiotics on discharge Outpatient follow up with surgical consult in two weeks to consider elective gallbladder surgery Okay to resume Eliquis at this time if the patient is not having surgery Plan discussed with: Patient (Dr Braden and Dr Faye), Other (Dr Faye) GIDEON PALMER MD Feb 15, 2025 23:36
[2025-02-16] VITALS (11 sets, daily range): BP systolic 128–174; BP diastolic 78–110; PULSE 97–130; RESP 16–19; TEMP 97.6–98.4; O2SAT 92–97
[2025-02-16] MEDS: FAMOTIDINE 20 MG TAB PO SCH (08:53)
--- NOTE | 2025-02-16 11:41 | DVHPN2 ---
Progress Note - Surgical Date Seen: Feb 16, 2025 Post op day Post op day: 0 Subjective Patient reports: Feels better (Patient states she is feeling better, pain has greatly diminished, tolerating diet) Review of Systems: Deferred Objective Vital signs Vital Sign Date Time Temp Pulse Resp B/P (MAP) Pulse Ox O2 Delivery O2 Flow Rate FiO2 02/16/25 10:15 96 Room Air* 0 21 02/16/25 09:00 97.8 113 17 128/78 (95) 97.8 Total Intake and Output 02/15/25 02/15/25 02/16/25 15:00 23:00 07:00 Intake Total 100 ml 1350 ml 580 ml Balance 100 ml 1350 ml 580 ml Medications Current Medications Medications Dose Ordered Sig/Emmanuelle Route Start Time Stop Time Status Last Admin Dose Admin Nitroglycerin 0.4 mg Q5MINP PRN SL 02/13/25 14:15 Morphine Sulfate 2 mg Q30M PRN IV 02/13/25 14:45 Ondansetron HCl 4 mg Q4HPRN PRN IV 02/13/25 14:15 Morphine Sulfate 2 mg Q3HPRN PRN IV 02/13/25 14:45 Hydralazine HCl 10 mg Q6HP PRN IV 02/13/25 14:15 02/15/25 16:40 10 MG Enoxaparin Sodium 40 mg DAILY SC 02/14/25 10:00 02/15/25 12:17 40 MG Albuterol 108 mcg Q4HPRN PRN IN 02/13/25 17:15 UNV Hydroxychloroquine Sulfate 200 mg DAILY PO 02/14/25 10:00 02/15/25 10:34 200 MG Hydralazine HCl 50 mg Q8HR PO 02/14/25 22:00 02/16/25 05:30 50 MG Montelukast Sodium 10 mg HS PO 02/14/25 22:00 02/15/25 21:15 10 MG Atenolol 25 mg BID PO 02/14/25 22:00 02/16/25 08:53 25 MG Piperacillin Sod/ Tazobactam Sod 100 ml @ 25 mls/hr Q8HR IV 02/15/25 06:00 02/16/25 05:29 25 MLS/HR Famotidine 20 mg DAILY PO 02/16/25 10:00 02/16/25 08:53 20 MG Laboratory Laboratory Tests 02/15/25 04:34 02/14/25 05:19 Test 02/15/25 04:34 Range/Units Serum Glucose 78 74-106 mg/dL Examination: GENERAL:Normal (AAO x3, resting comfortably in bed), HEENT:Normal (No icterus, neck supple), LUNGS:Normal (Nonlabored breathing with symmetric expansion), ABDOMEN:Normal (Nondistended, soft, depressible, nontender), SKIN:Normal (No jaundice) Problem List/Assessment/Plan Assessment and Plan Mrs. Cristina is a 71-year-old female who presents with the acute cholecystitis. CT shows pericholecystic fluid. Ultrasound shows sludge and a mildly thickened gallbladder wall. Patient is tender in the epigastric/right upper quadrant area physical exam. Given that the patient is on Eliquis and last taken on February 12 (needs to be off Eliquis 5 days prior to surgery) and has had pain already for 4 days, we will pursue nonoperative management with IV antibiotics. I will start the patient on Zosyn. Interval: Patient states that pain is almost completely gone, and tolerating diet. Given that the patient is doing well on antibiotics and pain has resolved for the most part, she is cleared for discharge. Patient will need to continue on p.o. antibiotics for a total 10 days, recommend Augmentin 875-125 mg 1 tab p.o. b.i.d.. 1. Non op management of acute cholecystitis for the above reasons 2. Cleared for discharge 3. Continue with p.o. antibiotics for a total 10 days, recommend Augmentin 875- 125 mg 1 tab p.o. b.i.d.. 4. For pain at home Tylenol, follow screen making supervisor's directions. 5. Follow up with Dr. Braden at surgery Clinic for elective cholecystectomy planning. Plan discussed with Plan discussed with: Patient Visit Coding Surgery Date of Service if different f: Feb 16, 2025 Billing Provider: BITA RON MD Surgery Visit Codes: [id number] INP/OBS CARE(HIGH) BITA RON MD Feb 16, 2025 11:41
[2025-02-16] MEDS: hydrALAZINE HCL 20 MG/ML VL ONE (17:03)
[2025-02-16] MEDS ORDERED: DILT120T16 PO (18:30)
--- NOTE | 2025-02-16 18:50 | DVHPN2 ---
Subjective Overnight events noted. Patient is currently tolerating clear liquid diet. 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 Medications Current Medications Medications Dose Ordered Sig/Emmanuelle Route Start Time Stop Time Status Last Admin Dose Admin Nitroglycerin 0.4 mg Q5MINP PRN SL 02/13/25 14:15 Morphine Sulfate 2 mg Q30M PRN IV 02/13/25 14:45 Ondansetron HCl 4 mg Q4HPRN PRN IV 02/13/25 14:15 Morphine Sulfate 2 mg Q3HPRN PRN IV 02/13/25 14:45 Hydralazine HCl 10 mg Q6HP PRN IV 02/13/25 14:15 02/16/25 17:09 10 MG Enoxaparin Sodium 40 mg DAILY SC 02/14/25 10:00 02/15/25 12:17 40 MG Albuterol 108 mcg Q4HPRN PRN IN 02/13/25 17:15 UNV Hydroxychloroquine Sulfate 200 mg DAILY PO 02/14/25 10:00 02/15/25 10:34 200 MG Hydralazine HCl 50 mg Q8HR PO 02/14/25 22:00 02/16/25 14:16 50 MG Montelukast Sodium 10 mg HS PO 02/14/25 22:00 02/15/25 21:15 10 MG Atenolol 25 mg BID PO 02/14/25 22:00 02/16/25 08:53 25 MG Piperacillin Sod/ Tazobactam Sod 100 ml @ 25 mls/hr Q8HR IV 02/15/25 06:00 02/16/25 14:16 25 MLS/HR Famotidine 20 mg DAILY PO 02/16/25 10:00 02/16/25 08:53 20 MG Laboratory Results Laboratory Tests 02/14/25 05:19 02/15/25 04:34 Urinalysis Test 02/13/25 12:58 Urine Color Yellow (Yellow) Urine Clarity Clear (Clear) Urine pH 6.0 (5.0-9.0) Urine Specific [place] 1.019 (1.001-1.035) Urine Protein Trace (Negative) H Urine Ketones Negative (Negative) Urine Blood Negative /uL (Negative) Urine Nitrite Negative (Negative) Urine Bilirubin Negative (Negative) Urine Urobilinogen 2 mg/dL (Negative) H Urine Leukocyte Esterase Negative /uL (Negative) Urine RBC 1 /hpf (0 - 4) Urine Microscopic WBC 1 /HPF (0-5) Urine Squamous Epithelial Cells Few /hpf (<5) Urine Bacteria Few /hpf (None Seen) H Urine Mucus Few (None Seen) Urine Glucose Normal mg/dL (Normal) Assessment/Plan Assessment/Plan 79-year-old female with a primary history of AFib, COPD with oxygen use at home, CHF, CAD, presents to the ED for a chief complaint of abdominal pain associated with nausea and vomiting x 4 days. Patient was found to have 1. Acute cholecystitis 2. Hypertensive urgency 3. Chronic AFib 4. Chronic respiratory failure on home O2 -continue Eliquis as patient is not going to have surgical intervention as patient is tolerating diet, outpatient follow up with the general surgery. Patient plan of care discussed with the patient's bedside RN. Plan discussed with: Patient My Orders Orders - CARLA RIZO MD Procedure Category Date Status Time (Nf) Eliquis PHA 02/16/25 Transmitted 19:00 Problem List: (1) Acute cholecystitis (2) Poorly-controlled hypertension (3) Atrial fibrillation with rapid ventricular response Date of Service: Feb 16, 2025 Billing Provider: CARLA RIZO MD Common Visit Codes: [id number] INP/OBS CARE(HIGH) CARLA RIZO MD Feb 16, 2025 18:50
[2025-02-16] MEDS: APIXABAN 5 MG TAB PO SCH (19:56)
--- NOTE | 2025-02-16 19:59 | DVHPN2 ---
Progress Note - Dictate Date Seen: Feb 16, 2025 Medical Necessity Reason Pt with a Central, PICC or Fol: No Subjective No new complaints, patient awake alert Clinically stable. Abdominal pain has improved. Tolerating liquid diet. Liver enzymes trending down Hepatitis panel negative POLA pending vital signs Vital Sign Date Time Temp Pulse Resp B/P (MAP) Pulse Ox O2 Delivery O2 Flow Rate FiO2 02/16/25 18:43 116 174/94 (120) 02/16/25 17:00 98.4 17 92 98.4 02/16/25 10:15 Room Air* 0 21 Total Intake and Output 02/15/25 02/15/25 02/16/25 15:00 23:00 07:00 Intake Total 100 ml 1350 ml 580 ml Balance 100 ml 1350 ml 580 ml medications Current Medications Medications Dose Ordered Sig/Emmanuelle Route Start Time Stop Time Status Last Admin Dose Admin Nitroglycerin 0.4 mg Q5MINP PRN SL 02/13/25 14:15 Morphine Sulfate 2 mg Q30M PRN IV 02/13/25 14:45 Ondansetron HCl 4 mg Q4HPRN PRN IV 02/13/25 14:15 Morphine Sulfate 2 mg Q3HPRN PRN IV 02/13/25 14:45 Hydralazine HCl 10 mg Q6HP PRN IV 02/13/25 14:15 02/16/25 17:09 10 MG Albuterol 108 mcg Q4HPRN PRN IN 02/13/25 17:15 UNV Hydroxychloroquine Sulfate 200 mg DAILY PO 02/14/25 10:00 02/15/25 10:34 200 MG Hydralazine HCl 50 mg Q8HR PO 02/14/25 22:00 02/16/25 14:16 50 MG Montelukast Sodium 10 mg HS PO 02/14/25 22:00 02/15/25 21:15 10 MG Atenolol 25 mg BID PO 02/14/25 22:00 02/16/25 08:53 25 MG Piperacillin Sod/ Tazobactam Sod 100 ml @ 25 mls/hr Q8HR IV 02/15/25 06:00 02/16/25 14:16 25 MLS/HR Famotidine 20 mg DAILY PO 02/16/25 10:00 02/16/25 08:53 20 MG Apixaban 5 mg BIDPC PO 02/16/25 19:00 02/16/25 19:56 5 MG objective Abdomen soft nontender nondistended positive bowel sounds. Comfortable in bed without distress. laboratory and microbiology Laboratory Tests 02/15/25 04:34 02/14/25 05:19 Test 02/15/25 04:34 Range/Units Serum Glucose 78 74-106 mg/dL Problems(with codes): (1) Atrial fibrillation with rapid ventricular response (2) Poorly-controlled hypertension (3) Acute cholecystitis (4) Congestive heart failure (5) Intermediate coronary syndrome Prognosis Plan Patient has been followed by surgical consult also Conservative management recommended at this time Continue IV antibiotics and transition to oral antibiotics on discharge Outpatient follow up with surgical consult in two weeks to consider elective gallbladder surgery Okay to resume Eliquis at this time if the patient is not having surgery Plan discussed with: Patient, Other (Dr Faye) GIDEON PALMER MD Feb 16, 2025 19:59
[2025-02-17] VITALS (7 sets, daily range): BP systolic 121–172; BP diastolic 83–95; PULSE 98–115; RESP 16–18; TEMP 97.6–98.2; O2SAT 93–96
[2025-02-17] MEDS: hydrALAZINE HCL 20 MG/ML VL ONE (09:10)
[2025-02-17] MEDS ORDERED: AUG875T PO (17:39)
--- NOTE | 2025-02-17 17:41 | DVHPN2 ---
Progress Note - Dictate Date Seen: Feb 17, 2025 Medical Necessity Reason Pt with a Central, PICC or Fol: No Subjective No new complaints, patient awake alert Clinically stable. Abdominal pain has improved. Tolerating soft diet. Liver enzymes trending down Hepatitis panel negative POLA positive vital signs Vital Sign Date Time Temp Pulse Resp B/P (MAP) Pulse Ox O2 Delivery O2 Flow Rate FiO2 02/17/25 17:00 98.1 108 18 166/83 (110) 94 98.1 02/17/25 09:30 Room Air* 0 21 Total Intake and Output 02/16/25 02/16/25 02/17/25 15:00 23:00 07:00 Intake Total 140 ml 1200 ml 730 ml Balance 140 ml 1200 ml 730 ml medications Current Medications Medications Dose Ordered Sig/Emmanuelle Route Start Time Stop Time Status Last Admin Dose Admin Nitroglycerin 0.4 mg Q5MINP PRN SL 02/13/25 14:15 Morphine Sulfate 2 mg Q30M PRN IV 02/13/25 14:45 Ondansetron HCl 4 mg Q4HPRN PRN IV 02/13/25 14:15 Morphine Sulfate 2 mg Q3HPRN PRN IV 02/13/25 14:45 Hydralazine HCl 10 mg Q6HP PRN IV 02/13/25 14:15 02/16/25 17:09 10 MG Albuterol 108 mcg Q4HPRN PRN IN 02/13/25 17:15 UNV Hydroxychloroquine Sulfate 200 mg DAILY PO 02/14/25 10:00 02/17/25 09:22 200 MG Hydralazine HCl 50 mg Q8HR PO 02/14/25 22:00 02/17/25 14:21 50 MG Montelukast Sodium 10 mg HS PO 02/14/25 22:00 02/16/25 21:33 10 MG Atenolol 25 mg BID PO 02/14/25 22:00 02/17/25 09:23 25 MG Piperacillin Sod/ Tazobactam Sod 100 ml @ 25 mls/hr Q8HR IV 02/15/25 06:00 02/17/25 05:15 25 MLS/HR Famotidine 20 mg DAILY PO 02/16/25 10:00 02/17/25 09:22 20 MG Apixaban 5 mg BIDPC PO 02/16/25 19:00 02/17/25 09:22 5 MG objective Abdomen soft nontender nondistended positive bowel sounds. Comfortable in bed without distress. laboratory and microbiology Laboratory Tests 02/15/25 04:34 02/14/25 05:19 Test 02/15/25 04:34 Range/Units Serum Glucose 78 74-106 mg/dL Problems(with codes): (1) POLA positive (2) Intermediate coronary syndrome (3) Atrial fibrillation with rapid ventricular response (4) Poorly-controlled hypertension (5) Acute cholecystitis (6) Congestive heart failure Prognosis Plan Patient has been followed by surgical consult also Conservative management recommended at this time Continue IV antibiotics and transition to oral antibiotics on discharge Outpatient follow up with surgical consult in two weeks to consider elective gallbladder surgery Okay to resume Eliquis at this time if the patient is not having surgery Outpatient follow up with GI Services to monitor her liver enzymes Rheumatological evaluation for positive POLA Plan discussed with: Patient GIDEON PALMER MD Feb 17, 2025 17:41
--- NOTE | 2025-02-17 17:44 | DVHDS2 ---
Discharge Summary Date of Admission Feb 13, 2025 at 14:13 Date of Discharge: Feb 17, 2025 Labs/Diagnostic Data: Laboratory Results Test 02/15/25 04:34 02/14/25 05:19 02/13/25 12:58 02/13/25 09:55 Sodium Level 144 mmol/L (136-145) Potassium Level 3.6 mmol/L (3.5-5.1) Chloride Level 110 mmol/L (98-107) Carbon Dioxide Level 26 mmol/L (20-31) Anion Gap 8 (5-15) Blood Urea Nitrogen 8 mg/dL (9-23) Creatinine 0.65 mg/dL (0.550-1.02) Glomerular Filtration Rate Calc 90 mL/min (>90) BUN/Creatinine Ratio 12.3 (10.0-20.0) Serum Glucose 78 mg/dL (74-106) Calcium Level 8.5 mg/dL (8.7-10.4) Total Bilirubin 0.8 mg/dL (0.2-1.0) Aspartate Amino Transferase (AST) 73 U/L (13-40) Alanine Aminotransferase (ALT) 82 U/L (7-40) Alkaline Phosphatase 208 U/L (46-116) Total Protein 6.0 g/dL (5.7-8.2) Albumin 3.6 g/dL (3.2-4.8) Anti-Nuclear Antibody Screen Positive (Negative) Hepatitis A Antibody Total Positive (Negative) Hepatitis B Surface Antigen Negative (Negative) Hepatitis B Surface Antibody Negative (Negative) Hepatitis B Core Total Antibody Negative (Negative) Hepatitis C Antibody Negative (Negative) White Blood Count 5.2 10^3/uL (4.4-10.8) Red Blood Count 3.95 10^6/uL (4.0-5.20) Hemoglobin 12.7 g/dL (12.2-16.2) Hematocrit 37.0 % (36.0-46.0) Mean Corpuscular Volume 93.6 fL (80.0-100.0) Mean Corpuscular Hemoglobin 32.2 pg (28.0-32.0) Mean Corpuscular Hemoglobin Concent 34.4 g/dL (32.0-36.0) Red Cell Distribution Width 13.6 % (11.8-14.3) Platelet Count 137 10^3/uL (140-450) Mean Platelet Volume 9.3 fL (6.9-10.8) Neutrophils (%) (Auto) 67.7 % (37.0-80.0) Lymphocytes (%) (Auto) 18.3 % (10.0-50.0) Monocytes (%) (Auto) 13.6 % (0.0-12.0) Eosinophils (%) (Auto) 0.3 % (0.0-7.0) Basophils (%) (Auto) 0.1 % (0.0-2.0) Neutrophils # (Auto) 3.5 10 ^3/uL (1.6-8.6) Lymphocytes # (Auto) 0.9 10 ^3/uL (0.4-5.4) Monocytes # (Auto) 0.7 10 ^3/uL (0-1.3) Eosinophils # (Auto) 0 10 ^3/uL (0-0.8) Basophils # (Auto) 0 10 ^3/uL (0-0.2) Nucleated Red Blood Cells 0.1 % Lipase 22 U/L (12-53) Urine Color Yellow (Yellow) Urine Clarity Clear (Clear) Urine pH 6.0 (5.0-9.0) Urine Specific [place] 1.019 (1.001-1.035) Urine Protein Trace (Negative) Urine Ketones Negative (Negative) Urine Blood Negative /uL (Negative) Urine Nitrite Negative (Negative) Urine Bilirubin Negative (Negative) Urine Urobilinogen 2 mg/dL (Negative) Urine Leukocyte Esterase Negative /uL (Negative) Urine RBC 1 /hpf (0 - 4) Urine Microscopic WBC 1 /HPF (0-5) Urine Squamous Epithelial Cells Few /hpf (<5) Urine Bacteria Few /hpf (None Seen) Urine Mucus Few (None Seen) Urine Glucose Normal mg/dL (Normal) Direct Bilirubin 0.5 mg/dL (<0.3) Troponin I High Sensitivity 9 ng/L (</=34) B-Type Natriuretic Peptide 241.63 pg/mL (0-100) Other Laboratory Tests 02/15/25 04:34 02/14/25 05:19 Brief Hx & Hospital Course: 79-year-old female with a primary history of AFib, COPD with oxygen use at home, CHF, CAD, presents to the ED for a chief complaint of abdominal pain associated with nausea and vomiting x 4 days. Patient was found to have acute cholecystitis. Patient also had hypertensive urgency. Patient's hospital course was eventful for AFib with a RVR requiring beta abbey. Patient is currently stable to be discharged. Patient was being seen by General surgery who recommended outpatient surgery as patient was on Eliquis which has to be stopped for five days for general surgery intervention. Patient is being discharged under stable condition on p.o. antibiotics. Please return to ER if there is any fevers chills abdominal pain worsening nausea and vomiting or any concern or not tolerating diet. Condition at Discharge: Stable Final Diagnosis/Problems List 79-year-old female with a primary history of AFib, COPD with oxygen use at home, CHF, CAD, presents to the ED for a chief complaint of abdominal pain associated with nausea and vomiting x 4 days. Patient was found to have 1. Acute cholecystitis, currently tolerating diet outpatient follow up 2. Hypertensive urgency 3. Chronic AFib 4. Chronic respiratory failure on home O2 Discharge Disposition: Home SNF Discharge Will this Physician continue t: No Discharge Instruct/Medications Diet: Cardiac 2g Na,low cholest Activity: No Restrictions, As Tolerated Follow Up/Referral: Please follow up with the PCP in one week Follow up with the general surgery Dr. Braden in one week Medications: Augmentin as prescribed. Scheduled Albuterol Sulfate (Albuterol Sulfate Hfa), AER INH UD, (Reported) Amoxicillin & Pot Clavulanate (Augmentin Tablet), 875 MG PO BID Apixaban Base (Eliquis), 5 MG PO BID, (Reported) Atenolol (Atenolol), 25 MG PO BID, (Reported) Atorvastatin Calcium (Lipitor), 1 TAB PO QPM, (Reported) Cholecalciferol (Vitamin D3), 2,000 UNIT PO TID, (Reported) Doxycycline Hyclate (Doxycycline Hyclate), 100 MG PO BID, (Reported) Furosemide (Furosemide), 80 MG PO BIDD, (Reported) Hydralazine HCl (Hydralazine Hydrochloride), 50 MG PO TID, (Reported) Hydroxychloroquine Sulfate (Plaquenil), 1 TAB PO DAILY, (Reported) Leflunomide (Arava), 1 TAB PO DAILY, (Reported) Losartan Potassium (Losartan Potassium), 100 MG PO DAILY, (Reported) Montelukast Sodium (Montelukast Sodium), 1 TAB PO DAILY, (Reported) Omeprazole (Omeprazole Dr), 1 CAP PO DAILY, (Reported) Prednisone (Prednisone), 2 TAB PO DAILY, (Reported) Miscellaneous Medications Cyanocobalamin (Vitamin B 12), 100 MCG PO, (Reported) Diltiazem HCl (Diltiazem Hci ER), 120 MG PO, (Reported) Discharge Statement: "Patient was advised to return to the ER or call 911 if any headaches, dizziness, shortness of breath, chest pain, abdominal pain, bleeding, fevers, or worsening of medical condition. Patient was counseled about treatment plan, medications, possible side effects, patientverbalized understanding. All questions were answered to the best of my ability. This discharge took greater then 30 minutes in planning, reviewing documentation, counseling the patient, and discussing with other team members." ASSESSMENT ASSESSMENT Assessment 79-year-old female with a primary history of AFib, COPD with oxygen use at home, CHF, CAD, presents to the ED for a chief complaint of abdominal pain associated with nausea and vomiting x 4 days. Patient was found to have 1. Acute cholecystitis, currently tolerating diet outpatient follow up 2. Hypertensive urgency 3. Chronic AFib 4. Chronic respiratory failure on home O2 Date of Service: Feb 17, 2025 Billing Provider: CARLA RIZO MD Common Visit Codes: NOT BILLABLE CARLA RIZO MD Feb 17, 2025 17:43
== END 2025-02-17 19:31 | disposition home or self-care (01) | DRG 444 ==
LOC: ER 09:03 → OVERFLOW 14:13 → WEST WING 18:15
PROVIDERS: ADMIT Hospitalist; ATTEND Hospitalist
DX: K81.0 Acute cholecystitis (principal); I50.33 Acute on chronic diastolic (congestive) heart failure; J96.10 Chronic respiratory failure, unspecified whether with hypoxia or hypercapnia; I11.0 Hypertensive heart disease with heart failure; Z99.81 Dependence on supplemental oxygen; I16.0 Hypertensive urgency; Z79.01 Long term (current) use of anticoagulants; J44.89 Other specified chronic obstructive pulmonary disease; M06.9 Rheumatoid arthritis, unspecified; I48.20 Chronic atrial fibrillation, unspecified; I25.10 Atherosclerotic heart disease of native coronary artery without angina pectoris; Z96.653 Presence of artificial knee joint, bilateral; Z82.49 Family history of ischemic heart disease and other diseases of the circulatory system; Z79.899 Other long term (current) drug therapy; Z91.018 Allergy to other foods
CPT/HCPCS: 36415; 71045; 74176; 76705; 80048; 80053; 80076; 81001; 82247; 83690; 83880; 84484; 85025; 86038; 86704; 86706; 86708; 86803; 87340; 93005; 96374; G0378; J2543